=== PATIENT | female | born 2000 | race Caucasian/White ===

== ENCOUNTER 2022-08-19 16:06 | Outpatient (OUT) | payer OTHER, SELFPAY ==
[2022-08-19 17:18] LABS: HCG Quantitative <1 mIU/mL
== END 2022-08-19 16:07 | disposition home or self-care (01) ==
LOC: LAB 16:10
PROVIDERS: PCP Family Medicine; Visit Provider Obstetrics & Gynecology
DX: N92.6 Irregular menstruation, unspecified (principal)
CPT/HCPCS: 36415; 84702

== ENCOUNTER 2022-09-16 22:04 | Outpatient (REF) | payer OTHER, SELFPAY ==
[2022-09-23 11:08] LABS: Age Gdln ACOG Testing Note (.); IGP, rfx Aptima HPV ASCU Note (.)
== END 2022-09-16 22:05 | disposition home or self-care (01) ==
LOC: LAB 22:04
PROVIDERS: PCP Family Medicine; Visit Provider Physician Assistant
DX: Z01.419 Encounter for gynecological examination (general) (routine) without abnormal findings (principal)
CPT/HCPCS: G0145

== ENCOUNTER 2023-09-22 19:06 | Outpatient (REF) | payer OTHER, SELFPAY | END 2023-09-22 19:07 | disposition home or self-care (01) | LOC: LAB 19:06 | PROVIDERS: PCP Family Medicine; Visit Provider Physician Assistant | DX: Z01.419 Encounter for gynecological examination (general) (routine) without abnormal findings (principal) | CPT/HCPCS: 88175 ==

== ENCOUNTER 2024-02-02 14:02 | Outpatient (OUT) | payer OTHER, SELFPAY ==
--- NOTE | 2024-02-02 14:08 | CT_ITS ---
The [address] [address] Patient Name: GAEL JORGE MRN: [id number] date: 2000 Sex: F Assigned Patient Location: CT Current Patient Location: CT Accession/Order Number: [id number] Exam Date: 02/02/2024 14:19 Report Date: 02/02/2024 20:29 At the request of: DANIEL WITT Procedure: CT sinus wo con EXAM: CT sinus wo con HISTORY: Acute Non Recurrent Maxillary Sinusitis COMPARISON: None. TECHNIQUE: Multiple thin computed tomograms of the paranasal sinuses were obtained, with sagittal and coronal reconstructions. FINDINGS: The paranasal sinuses are well-developed and essentially clear. The ostiomeatal complex on either side is patent. The orbital rims and floors are intact. The waters of the sinuses are intact. There is deviation of the nasal septum to the right accompanied by a spur. The nasal passages are patent. The visualized middle ears are aerated. The visualized mastoid sinuses are clear although not fully included in the [id number]. There is no apparent acute skull fracture. There is mild prominence of the soft tissues in the posterior nasopharynx, presumably adenoid tissues. CT/CT sinus wo con IMPRESSION: The paranasal sinuses are well-developed and essentially clear. The ostiomeatal complex on either side is patent. The osseous structures are intact. There is deviation of the nasal septum to the right accompanied by a spur to the right, while the nasal passages remain patent. There is no evidence of a fracture. The visualized middle ears and mastoid sinuses are clear. Electronically authenticated by: MAGY AVELAR Date: 02/02/2024 20:29
== END 2024-02-02 14:03 | disposition home or self-care (01) ==
LOC: CT 14:03
PROVIDERS: PCP Family Medicine
DX: J01.00 Acute maxillary sinusitis, unspecified (principal); H69.93 Unspecified Eustachian tube disorder, bilateral; J32.0 Chronic maxillary sinusitis
CPT/HCPCS: 70486

== ENCOUNTER 2024-09-23 12:30 | Outpatient (REF) | payer OTHER, SELFPAY ==
--- OUTSIDE RECORDS SUMMARY | 2024-09-23 12:37 | XMS_ITS | CCD ---
Author Organization [facility] Care Team Providers Care Program Manager Slp Name Role Phone Esperanza Barraza Attending Kathyab Declan Harley Referring Unavail able REQUEST, NONE LISTED Admitting Unavaila ble REQUEST, NONE LISTED Attending Unavaila ble REQUEST, NONE LISTED Consulting Unavaila ble REQUEST, NONE LISTED Admitting Unavaila ble REQUEST, NONE LISTED Attending Unavaila ble REQUEST, NONE LISTED Consulting Unavaila ble CANNON, DR JACIEL Lagunas Attending Unavailable CANNON, DR JACIEL Lagunas Consulting Unavailable CANNON, DR JACIEL Lagunas Admitting Unavailable Destinee Bailey Unavailable Jaciel Cannon MD Primary Care Provider Jaciel Cannon MD Primary Care Provider [phone] Jose Valdovinos Attending Unavailable Jaciel Cannon MD Primary Care Provider [phone] ALEXIS, MARGARET Attending Unavailable ALEXIS, MARGARET Attending Unavailable ALEXIS, MARGARET Attending Unavailable ALEXIS, MARGARET Attending Unavailable ALEXIS, MARGARET Attending Unavailable ALEXIS, MARGARET Attending Unavailable DAVE CANNONIA E Referring Unavailable CANNON, JACIEL E Primary Care Unavailable ARELIS GUILLERMO Attending Unavailable CANNON JACIEL E Referring Unavailable CANNON, JACIEL E Primary Care Unavailable CANNON JACIEL E Referring Unavailable CANNON, JACIEL E Primary Care Unavailable BRENT MOORE Attending Unavailable CANNON, JACIEL E Referring Unavailable CANNON, JACIEL E Primary Care Unavailable ARELIS GUILLERMO Attending Unavailable CANNON, JACIEL E Referring Unavailable CANNON, JACIEL E Primary Care Unavailable CANNON, JACIEL E Referring Unavailable CANNON, JACIEL E Primary Care Unavailable ARELIS GUILLERMO Attending Unavailable CANNON, JACIEL E Referring Unavailable CANNON, JACIEL E Primary Care Unavailable CANNON, JACIEL E Referring Unavailable CANNON, JACIEL E Primary Care Unavailable CANNON, JACIEL E Referring Unavailable CANNON, JACIEL E Primary Care Unavailable ARELIS GUILLERMO Attending Unavailable JACIEL CANNON Referring Unavailable JACIEL CANNON Primary Care Unavailable Jaciel Cannon MD Primary Care Provider Allergies Allergy Classification Reported Allergen(s) Allergy Type Date of Onset Reaction(s) Facility (2 sources) Amoxicillin / Clavulanate; Translations: [Augmentin] Drug Allergy [facility] (16 sources) Amoxicillin Drug Allergy 3 Other [facility] (20 sources) Amoxicillin-Pot Clavulanate; Translations: [AMOXICILLIN-PO T CLAVULANATE] Drug Intolerance 2 GI intolerance, GI Disturbance [facility] Medications Current Medications Medication Drug Class(es) Dates Sig (Normalized) Sig (Original) acetaminophen 325 mg oral tablet (3 sources) Start: 02-05-2023 End: 02-15-2023 take 2 tablets by mouth every six hours as needed for pain acetaminophen (TYLENOL) 325 mg tablet Take 2 tablets (650 mg total) by mouth every 6 (six) hours as needed for pain for up to 10 days. 30 tablet 0 02/05/2023 02/15/2023 Active azelastine hydrochloride 0.137 mg/actuat metered dose nasal spray (20 sources) Histamine-1 Receptor Antagonist Start: 02-11-2023 take 1 spray(s) nasal route in the morning azelastine (ASTELIN) 137 mcg (0.1 %) nasal spray Indications: Allergic rhinitis , Dysfunction of both eustachian tubes Administer 1 spray into each nostril in the morning and 1 spray before bedtime. Use in each nostril as directed. 30 mL 12 02/11/2023 Active Start: 02-18-2022 End: 10-15-2023 take 1 spray(s) nasal route at bedtime azelastine (Astelin) 0.1 % nasal spray SPRAY 1 SPRAY INTO EACH NOSTRIL IN THE MORNING AND BEFORE BEDTIME DIRECTED 02/18/2022 10/15/2023 Discontinued (Other) Start: 02-18-2022 End: 02-10-2023 take 1 spray(s) nasal route at bedtime azelastine (ASTELIN) 137 mcg (0.1 %) nasal spray Indications: Allergic rhinitis , Dysfunction of both eustachian tubes SPRAY 1 SPRAY INTO EACH NOSTRIL IN THE MORNING AND BEFORE BEDTIME DIRECTED 30 mL 12 02/18/2022 02/10/2023 Discontinued (Reorder) cefdinir 300 mg oral capsule (1 source) Cephalosporin Antibacterial Start: 08-07-2022 clindamycin 300 mg oral capsule (2 sources) Lincosamide Antibacterial Start: 02-10-2023 End: 02-17-2023 take 1 capsule by mouth three times daily clindamycin (CLEOCIN) 300 mg capsule Indications: Otorrhea, right Take 1 capsule (300 mg total) by mouth 3 (three) times a day for 7 days. 21 capsule 0 02/10/2023 02/17/2023 Active FLUoxetine 20 mg oral capsule (15 sources) Serotonin Reuptake Inhibitor Start: 06-08-2024 take 1 capsule by mouth once daily FLUoxetine (PROzac) 20 MG capsule Indications: Mood changes TAKE 1 CAPSULE BY MOUTH EVERY DAY 90 capsule 3 06/08/2024 Active Start: 05-10-2024 End: 06-09-2024 take 2 capsules by mouth once daily FLUoxetine (PROzac) 10 MG capsule Indications: Mood changes Take 2 capsules (20 mg) by mouth Daily 60 capsule 05/10/2024 06/09/2024 Active Start: 05-03-2024 End: 01-28-2025 take 1 capsule by mouth once daily FLUoxetine (PROzac) 10 MG capsule Indications: Mood changes Take 1 capsule (10 mg) by mouth Daily 90 capsule 2 05/03/2024 05/10/2024 Discontinued (Ineffective) take 1 capsule by mo uth in the morning FLUoxetine (PROzac) 10 mg capsule Take 1 capsule (10 mg total) by mouth in the morning. Active fluticasone propionate 0.05 mg/actuat metered dose nasal spray (20 sources) Corticosteroid Start: 11-11-2017 Fluticasone Pr opionate (Flonase Allergy Relief) 50 mcg/actuation Atkinson,Suspension Active 2 SPRAY INTRANASAL Twice daily November 11, 2017 12:00am fluticasone (Thomas nase) 50 MCG/ACT nasal spray every 12 (twelve) hours. Active take 2 spray(s) nasal route once daily fluticasone (VERAMYST) 27.5 mcg/actuation nasal spray Administer 2 sprays into each nostril once daily. Active take 1 spray(s) nasa l route in the morning fluticasone propionate (FLONASE) 50 mcg/actuation nasal spray Administer 1 spray into each nostril in the morning. Active ibuprofen 600 mg oral tablet (15 sources) Nonsteroidal Anti-inflammatory Drug Start: 02-05-2023 take 1 tablet by mouth every six hours as needed for pain ibuprofen (MOTRIN) 600 mg tablet Take 1 tablet (600 mg total) by mouth every 6 (six) hours as needed for pain. 30 tablet 02/05/2023 Active ipratropium bromide 0.042 mg/actuat metered dose nasal spray (20 sources) Anticholinergic Start: 12-28-2023 take 2 spray(s) nasal route three times daily as needed ipratropium (Atrovent) 0.06 % nasal spray Administer 2 sprays into affected nostril(s) 3 (three) times a day as needed 12/28/2023 Active Start: 12-04-2023 End: 12-28-2023 take 2 spray(s) nasal route three times daily as needed for rhinitis ipratropium (ATROVENT) 42 mcg (0.06 %) nasal spray Indications: Dysfunction of both eustachian tubes , Vasomotor rhinitis ADMINISTER 2 SPRAYS INTO EACH NOSTRIL 3 (THREE) TIMES A DAY NEEDED FOR RHINITIS. 45 mL 4 12/28/2023 Active 24 hr metFORMIN hydrochloride 500 mg extended release oral tablet (20 sources) Biguanide Start: 09-30-2023 End: 10-30-2023 take 1 tablet by mouth every twenty-four hours at mealtime metFORMIN XR (Glucophage-XR) 500 MG 24 hr tablet Indications: Encounter for weight management Take 1 tablet (500 mg) by mouth in the evening. Take with meals Do not crush, chew, or split. 30 tablet 11 09/30/2023 Active take 1 tablet by malia th in the morning, then take 1 tablet by mouth at bedtime metFORMIN (GLUCOPHAGE) 500 mg tablet Gee e 1 tablet (500 mg total) by mouth in the morning and 1 tablet (500 mg total) before bedtime. Active methylPREDNISolone (15 sources) Corticosteroid Start: 12-04-2023 methylPREDNISo lone (MEDROL, SIA,) 4 mg tablet Indications: Acute non-recurrent maxillary sinusitis Take as directed 21 tablet 12/04/2023 Active Start: 02-10-2023 End: 12-04-2023 methylPREDNISolone (MEDROL, SIA,) 4 mg tablet Indications: Otorrhea, right Take as directed 21 tablet 02/10/2023 12/04/2023 Discontinued (Therapy completed) Start: 02-10-2023 methylPREDNISo lone (MEDROL, SIA,) 4 mg tablet Indications: Otorrhea, right Take as directed 21 tablet 02/10/2023 Active Start: 02-10-2023 methylPREDNISo lone (MEDROL, SIA,) 4 mg tablet Indications: Otorrhea, right Take as directed 21 tablet 0 02/10/2023 Active multivitamin with minerals ( HAIR,SKIN AND NAILS ORAL) (15 sources) multivitamin wit h minerals (HAIR,SKIN AND NAILS ORAL) Take by mouth. Active multivitamin wit h minerals (HAIR,SKIN AND NAILS ORAL) Take by mouth. 0 Active phentermine hydrochloride 37.5 mg oral tablet (20 sources) Sympathomimetic Amine Anorectic Start: 10-18-2021 End: 12-22-2024 take 1 tablet by mouth before mealtime phentermine (Adipex-P) 37.5 MG tablet Indications: Encounter for weight management Take 1 tablet (37.5 mg) by mouth in the morning. Take before meals. 90 tablet 09/23/2024 12/22/2024 Active Completed/Discontinued Medications Medication Drug Class(es) Dates Sig (Normalized) Sig (Original) ciprofloxacin 3 mg/ml ophthalmic solution (3 sources) Quinolone Antimicrobial Start: 12-18-2017 End: 12-27-2017 take 1 drop(s) into the eye(s) twice daily Ciprofloxacin Hcl Discontinued 5 DROPS OPHTHALMIC Twice daily 5 3 December 18, 2017 1:00am December 27, 2017 1:02am Ophthalmic drops for ears ciprofloxacin 3 mg/ml / dexamethasone 1 mg/ml otic suspension (11 sources) Corticosteroid, Quinolone Antimicrobial Start: 12-04-2023 End: 06-21-2024 ciprofloxacin-dexA METHasone (CiproDEX) otic suspension Administer 4 drops into each ear if needed 12/04/2023 06/21/2024 Discontinued Start: 12-04-2023 End: 12-09-2023 ciprofloxacin-dexAMETHasone (CIPRODEX) otic suspension Indications: Dysfunction of both eustachian tubes Administer 4 drops into ears in the morning and 4 drops before bedtime. Do all this for 5 days. 7.5 mL 12/04/2023 12/09/2023 Active doxycycline monohydrate 100 mg oral tablet (3 sources) Tetracycline-class Drug Start: 08-04-2024 End: 08-14-2024 take 1 tablet by mouth in the morning, then take 1 tablet by mouth at bedtime doxycycline (ADOXA) 100 MG tablet Indications: Acute otitis media, right Take 1 tablet (100 mg total) by mouth in the morning and 1 tablet (100 mg total) before bedtime. Do all this for 10 days. 20 tablet 08/04/2024 08/14/2024 Start: 12-04-2023 End: 12-14-2023 take 1 tablet by mouth in the morning, then take 1 tablet by mouth at bedtime doxycycline (ADOXA) 100 MG tablet Indications: Acute non-recurrent maxillary sinusitis Take 1 tablet (100 mg total) by mouth in the morning and 1 tablet (100 mg total) before bedtime. Do all this for 10 days. 20 tablet 12/04/2023 12/14/2023 Active famotidine 20 mg oral tablet (3 sources) Histamine-2 Receptor Antagonist End: 10-15-2023 famotidine (Pepcid) 20 MG tablet 1 (one) time each day at the same time. 10/15/2023 Discontinued (Other) Problems Active Problems Problem Classification Problem Date Documented Date Episodic/Chronic Administrative/socia l admission (10 sources) Patient encounter status; Translations: [Persons encountering health services in other specified circumstances] 01-14-2024 Episodic Disorders of teeth and jaw (2 sources) Unspecified temporomandibular joint disorder, unspecified side; Translations: [Temporomandibular joint disorder] Onset: 06-22-2024 06-22-2024 Episodic Mood disorders (2 sources) Disturbance in mood; Translations: [Emotional lability] 05-10-2024 Episodic Other ear and sense organ disorders (15 sources) Hearing loss; Translations: [Unspecified hearing loss, unspecified ear] Onset: 01-24-2023 01-24-2023 Chronic Other ear and sense organ disorders (1 source) Conductive hearing loss, bilateral; Translations: [Conductive hearing loss, bilateral] 06-29-2024 Chronic Other ear and sense organ disorders (2 sources) Ear sensations - finding; Translations: [Other specified disorders of right ear] 08-21-2023 Episodic Other ear and sense organ disorders (2 sources) Otalgia, right ear; Translations: [Otalgia, unspecified] Onset: 06-22-2024 06-22-2024 Episodic Other nutritional; endocrine; and metabolic disorders (3 sources) Severe obesity; Translations: [Morbid (severe) obesity due to excess calories] 07-10-2023 Chronic Other nutritional; endocrine; and metabolic disorders (4 sources) Morbid (severe) obesity due to excess calories; Translations: [Morbid obesity] 07-10-2023 Chronic Other nutritional; endocrine; and metabolic disorders (4 sources) Weight increased; Translations: [Abnormal weight gain] 02-16-2024 Episodic Other upper respiratory disease (2 sources) Allergic rhinitis; Translations: [Allergic rhinitis, unspecified] 02-10-2023 Chronic Other upper respiratory disease (15 sources) Seasonal allergy; Translations: [Other seasonal allergic rhinitis] Onset: 01-24-2023 01-24-2023 Chronic Other upper respiratory disease (3 sources) Vasomotor rhinitis; Translations: [Vasomotor rhinitis] 03-11-2024 Chronic Other upper respiratory disease (1 source) Vasomotor rhinitis; Translations: [Vasomotor rhinitis] Onset: 12-04-2023 Chronic Other upper respiratory disease (1 source) Deviated nasal septum; Translations: [Deviated nasal septum] Onset: 06-22-2024 Episodic Other upper respiratory disease (1 source) Deviated nasal septum; Translations: [Deviated nasal septum] 06-22-2024 Episodic Other upper respiratory infections (4 sources) Chronic bilateral maxillary sinusitis; Translations: [Chronic maxillary sinusitis] Onset: 12-04-2023 03-11-2024 Chronic Otitis media and related conditions (20 sources) Bilateral disorder of Eustachian tubes; Translations: [Other specified disorders of Eustachian tube, bilateral] Onset: 11-06-2022 03-11-2024 Episodic Unclassified (1 source) Earache Onset: 06-22-2024 Unclassified (1 source) Ear pressure Onset: 06-22-2024 Unclassified (1 source) tube check Onset: 08-21-2023 Past or Other Problems Problem Classification Problem Date Documented Da te Episodic/Chronic Immunizations and screening for infectious disease (4 sources) Encounter for screening for other viral diseases; Translations: [ENC SCREENING FOR OTH VIRAL DZ] Onset: 09-14-2019 Episodic Other circulatory disease (1 source) Other specified symptoms and signs involving the circulatory and respiratory systems; Translations: [OTH SPEC SX SIGNS INVLV CIRC RS] Onset: 09-24-2019 Episodic Other ear and sense organ disorders (15 sources) Otorrhea of bilateral ears; Translations: [Otorrhea, bilateral] Onset: 11-06-2022 11-06-2022 Episodic Other ear and sense organ disorders (1 source) Otorrhea of right ear; Translations: [Otorrhea, right ear] 02-10-2023 Episodic Other ear and sense organ disorders (2 sources) Other specified disorders of right ear; Translations: [Other specified disorders of right ear] Onset: 08-21-2023 Episodic Other nervous system disorders (16 sources) H/O: ear disorder; Translations: [Personal history of other diseases of the nervous system and sense organs] Onset: 11-06-2022 11-06-2022 Episodic Other nervous system disorders (1 source) Personal history of other diseases of the nervous system and sense organs; Translations: [Personal history of other diseases of the nervous system and sense organs] Onset: 11-06-2022 Episodic Other upper respiratory disease (1 source) Nasal congestion; Translations: [Nasal congestion] 08-21-2023 Episodic Other upper respiratory disease (1 source) Nasal congestion; Translations: [Nasal congestion] Onset: 08-21-2023 Episodic Other upper respiratory infections (4 sources) Acute maxillary sinusitis, unspecified; Translations: [Acute maxillary sinusitis] Onset: 12-04-2023 Episodic Residual codes; unclassified (1 source) Pain, unspecified; Translations: [Pain, unspecified] Onset: 03-13-2024 Episodic Unclassified (3 sources) Patient encounter status 06-21-2024 Results Test Name Value Interpretation Reference Range Facility HCG ( test) Ql (U)o n 06-21-2024 Interpretation and review of laboratory results Normal [facility] Preg Test, Ur Negative Negative [facility] Urinal[facility] macro (dipstick) panel (U)on 06-21-2024 Bilirubin, UA Negative Negative - 4(70) +++ mg/dL [facility] Blood, UA Positive Negative - 50 Bg/mcL [facility] Comment on above: trace-intact Clarity, UA Clear [facility] Color, UA Yellow [facility] Glucose, UA Negative Negative - 1999(110) ++++ mg/dL [facility] Interpretation and review of laboratory results Abnormal [facility] Ketones, UA Negative Negative - 160(16) ++++ mg/dL [facility] Leukocytes, UA Negative Negative - 500+++ Lorenza/mcL [facility] Nitrite, UA Negative Negative - Positive [facility] pH, UA 5.5 5 - 9 [facility] e Protein, UA Negative Negative - 1999(20) ++++ mg/dL [facility] Spec Grav, UA 1.03 1 - 1.03 [facility] Urobilinogen, UA 0.2 0.2 - 12 mg/dL [facility] Ambulatory Visit Summaryon 0 06-13-2024 Ambulatory Visit Summary Ambulatory Visit Summary JAMES BUSTOS :2000 Visit Date:06/13/2024 Ambulatory Visit Instructions Your Diagnosis Right otitis media with spontaneous rupture of eardrum Your Care Team Attending Physician - Bonifacio CRUM, Jose Ramesh Primary Care Physician - JACIEL CIFUENTES MD This Is Your Medications List amoxicillin (amoxicillin 500 mg Cap) ciprofloxacin-dexamet hasone otic (Ciprodex 0.3%-0.1% Susp-Otic) Contact prescribing physician if questions or concerns fluoxetine (FLUoxetine 20 mg Cap) metformin (MetFORMIN (Eqv-Glucophage XR) 500 mg oral tablet, extended release) phentermine (phentermine 37.5 mg Tab) Discharge Vitals Temperature (Oral) 36.4 ???C Heart Rate (Peripheral) 111 Blood Pressure 126/84 Height 170 cm Height 67 in Weight 134 kg Weight 295.419 lb BMI 46.37 What to do next You Need to Schedule the Following Appointments Follow Up with JACIEL CIFUENTES MD When: Where: [address] [place] [id number] Medications What How Much When Why Instructions New amoxicillin (amoxicillin 500 mg Cap) 2 Capsules By Mouth 2 times a day Right otitis media with spontaneous rupture of eardrum Duration: 7 Days Pickup at [facility]/pharmacy #[id number] New ciprofloxacin-dexamet hasone otic (Ciprodex 0.3%-0.1% Susp-Otic) 4 Drops Otic 2 times a day Right otitis media with spontaneous rupture of eardrum Duration: 7 Days Pickup at [facility]/pharmacy #[id number] Unchanged fluoxetine (FLUoxetine 20 mg Cap) Contact prescribing physician if questions or concerns Unchanged metformin (MetFORMIN (Eqv-Glucophage XR) 500 mg oral tablet, extended release) Contact prescribing physician if questions or concerns Unchanged phentermine (phentermine 37.5 mg Tab) Contact prescribing physician if questions or concerns Pharmacy Information [facility]/pharmacy #[id number]: [address] [place], [place] [id number] [phone] Allergies Augmentin (Vomiting) Problems Ongoing - Any problem that you are currently receiving treatment for. Morbid obesity with BMI of 45.0-49.9, adult Patient Survey You may receive a survey via text or e-mail asking about your office visit. Please share your experience with us by completing your survey. We appreciate your feedback and thank you for choosing us for your care. Adal Gu [facility] Family Medicine Office/Clini c Noteon 06-13-2024 Family Medicine Office/Clinic Note Family Medicine Office/Clinic Note Chief Complaint right ear pain HPI Staff 24 year old female complaints of right ear pain that woke her up in the middle of the night, blood coming from right ear the tube in her right ear dislodged about a month ago and saw ENT who took it out. currently has tubes in left ear OTC tried: ciproflaxin ear drops, ibuprofen History of Present Illness I have reviewed and verified the staff HPI to be accurate for this encounter. Portions of this record have been created with voice recognition software. Occasional wrong-word or ???[id number]??? substitutions may have occurred due to the inherent limitations of voice recognition software. 24 yo female presents today with cc of right ear pain. States she woke up in the middle of the night and had blood coming from the right ear. States that the tube in her right ear dislodged about a month ago and she saw ENT who took it out. States she currently has a tube in the left ear. Patient states that for the past 1 week she has developed cough. 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 Denies really any stuffy nose but states postnasal drip. She denies any fever chills or weakness. She states that yesterday she noticed the right sided ear pain when she swallowed but states it kind of came and went so she did not think much of it. States she woke around 2:30 AM this morning with significant right-sided ear pain states that she got up she took some ibuprofen and she found her Ciprodex eardrops that she was told to keep on hand by ENT and put some drops in. States that she laid back down when she woke up this morning and stood up she noticed drainage that she could feel running down the side of her cheek which she states was blood-tinged. She states it is continued to drain as she has been putting a tonsil on that right ear states still some blood-tinged drainage. She states that the ear pain has improved. She denies any fever or chills. She has no other concerns at this time. Plans to contact ENT tomorrow morning but did not want to wait. States allergy to Augmentin due to nausea and vomiting. Review of Systems PHQ Score Initial Depression Screen Score: 0 SCORE ROS negative unless otherwise stated in HPI. Physical Exam Vitals & Measurements T: 36.4 ???C(Oral) HR: 111(Peripheral) BP: 126/84 SpO2: 98% HT: 170 cm HT: 67 in WT: 134 kg WT: 295.419 lb BMI: 46.37 General: Very pleasant morbidly obese young female, no acute distress sitting upright in the exam chair Eyes:Bilateral conjunctiva wnl, no injection Ears: The right TM is very erythematous with air-fluid levels and bubbles concerning for a right otitis media with spontaneous TM rupture. There is serosanguineous fluid within that right ear canal that is draining. The left TM is within normal limits tympanostomy tube is noted in the left ear. No redness or concern for infection. External auditory canals are within normal limits no erythema or edema. Nose:No deformity, discharge, inflammation, or lesions Mouth:Moist mucous membranes. Uvula is midline. No acute tonsillar erythema, edema, or exudate. No signs of peritonsillar abscess. No trismus or drooling. Neck:no adenopathy Lungs:Lung sounds are clear bilaterally. No wheezing, rhonchi, or crackles on exam. Cardio:S1, S2, regular rhythm. No murmurs, gallops, or rubs. Abdomen:not assessed Musculoskeletal:not assessed Extremity:not assessed Neurologic:not assessed Skin:not assessed Mental Status:Alert and oriented x3. Normal mood and affect Assessment/Plan I spoke with patient regards to treatment of right acute otitis media with spontaneous rupture of eardrum. Discussed we will treat with amoxicillin 500 mg 2 caps twice daily x 7 days duration in addition to refill of her Ciprodex otic drops. This will be 4 drops twice daily x 7 days. Patient will contact her ENT for [facility] tomorrow morning to schedule follow-up appointment which she agrees understands plan. Otherwise will follow closely with PCP or return if needed. Will continue Tyle ibuprofen as needed for pain. 1. Right otitis media with spontaneous rupture of eardrum (H66.91: Otitis media, unspecified, right ear) Will treat with amoxicillin bid x 7 days, in addition to ciprodex drops: 4 drops bid x 7 days. Finish course. Fluids/rest, PRN tylenol/ibuprofen for pain and/or fever encouraged. Discussed other cold symptoms remain viral in nature- typical duration 7-14 days. Encouraged to follow up with PCP for recheck in about 5 days to ensure infection resolving, especially if symptoms worsening or fevers. Patient verbalized understanding of treatment plan. Ordered: amoxicillin, 1,000 mg = 2 cap(s), Oral, BID, X 7 day(s), # 28 cap(s), Refills(s) 0, Pharmacy: [id number], 170, cm, 06/13/24 10:19:00 EDT, Height/Length Dosing, 134, kg, 06/13/24 10:19:00 EDT, Weight Dosing ciprofloxacin-dexamet hasone otic, 4 drop(s), Otic, BID for 7 day(s), 7.5 mL, Refill(s) 0, [id number], 170, cm, 06/13/24 10:19:00 EDT, Hei (more content not included)... Normal [facility] Comment on above: Result Comment: Elec tronically Signed By: Bonifacio CRUM, Jose Ramesh\.br\Date and Time Signed: 06/13/24 10:50 EDT COVID-19 PCRon 09-16-2019 SARS-CoV-2 (COVID-19) RNA LAKESHA+probe Ql (Unsp spec) Not detected Normal Not Detected [facility] Comment on above: Result Comment: This test was developed and its performance characteristics determined by [employer]. This test has not been FDA cleared or approved. This test has been authorized by FDA under an Emergency Use Authorization (EUA). This test is only authorized for the duration of time the declaration that circumstances exist justifying the authorization of the emergency use of in vitro diagnostic tests for detection of SARS-CoV-2 virus and/or diagnosis of COVID-19 infection under section 564(b)(1) of the Act, 21 U.S.C. 360bbb-3(b)(1), unless the authorization is terminated or revoked sooner. When diagnostic testing is negative, the possibility of a false negative result should be considered in the context of a patient's recent exposures and the presence of clinical signs and symptoms consistent with COVID-19. An individual without symptoms of COVID-19 and who is not shedding SARS-CoV-2 virus would expect to have a negative (not detected) result in this assay. 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 - On PE there was reproducible neck and otologic pain with palpation of bl carotids, likely related to carotidynia. - Will start ibuprofen 800mg TID for 2 weeks, Pepcid. - Will consider imaging if there is no improvement of her pain Chief Complaint bl otalgia History of Present Illness 18 yo female referred by Dr. Declan Patel presenting for initial evaluation of recurrent ear infections and ear pain. The patient states her had ear infections as a child requiring PE tubes in 2006 and later in 12/2017 (T tubes), prior to her second set of ear tubes she was having 10 episodes of otitis media a year, this has now significantly improved, did endorse 1 episode of otitis since her T tubes were placed. In addition she reports occasional bl aural fluens and intermittent bilateral otalgia, no known triggers, pain last several minutes and resolved. Denies vertigo, headaches, pain with chewing, vision changes, neck pain, lumps/ bumps, weight loss, nasal obstruction/ congestion, epistaxis. Of note she also underwent TANDA in 2008. 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 Ability to communicate: Normal communication without aids, normal voice quality. Head and face: Atraumatic with no masses, lesions, or scarring. Facial strength: Normal strength and symmetry, no synkinesis or facial tic. No pain noted with palpation of TMJ/ pterygoids Eyes Pupils and irises: EOM intact, PERRLA, conjunctiva non-injected. Ears Otoscopic examination: Right EAC patent, TM with mild posterior tympanosclerosis, T tube in place and patent Left EAC patent, TM clear, T tube in place and patent No drainage or signs of infection External inspection of ears: Ears normally formed and free of lesions. Nose: Dorsum symmetric with no visible or palpable deformities. External inspection of nose: No nasal lesions, lacerations, or scars. Nasal tip symmetrical with normal nasal valves. Oral Cavity/Mouth Lips, teeth, and gums: Normal lips, gums, and dentition. Oropharynx: Mucosa moist, no lesions. Hard and soft palate normal. Tongue normal, no lesions or edema. Clear OP. Neck: Symmetrical, trachea midline. No masses visible. Palpation of carotids revealed reproducible neck and otologic pain bilaterally Palpation of cervical lymph nodes: No palpable lymph node enlargement, no submandibular adenopathy, no anterior cervical adenopathy, no supraclavicular adenopathy. Neurological/Psychiat popeye Cranial Nerve Examination: II - XII grossly intact. Orientation to person, place, and time: Normal. Mood and affect: Normal. Skin: Normal without rashes or lesions. Pulmonary Respiratory effort: Chest expands symmetrically. Cardiovascular: Good peripheral pulses Peripheral vascular system: No varicosities, carotid pulse normal, no edema. No jugular venous distension. Extremities Appearance of extremities: Normal. Gait normal. Attending Note Attestation: I saw and evaluated the patient. I personally obtained the dia and critical portions of the history and physical exam or was physically present for dia and critical portions performed by the attendee. I reviewed the attendee's documentation and discussed the patient with the attendee. I agree with the attendee's medical decision making as documented on the attendee's note. Signatures Electronically signed by : Esperanza Barraza MD; Jul 21 2018 1:50PM EST (Author) Normal [facility] Vital Signs Date Time Vital Sign Value Performing Clinician Facility 09-23-2024 10:15-0400 Body height 170.2 cm Maame Dickson NP Work Phone: [facility] 09-23-2024 10:15-0400 Body mass index (BMI) [Ratio] 47.95 kg/m2 Maame Dickson FLIGHT ATTENDANT/INFLIGHT MANAGER Work Phone: [facility] 09-23-2024 10:15-0400 Body weight 138.86 kg Maame Dickson NP Work Phone: [facility] 09-23-2024 10:15-0400 Diastolic blood pressure 72 mm[Hg] Maame Dickson FLIGHT ATTENDANT/INFLIGHT MANAGER Work Phone: [facility] 09-23-2024 10:15-0400 Systolic blood pressure 130 mm[Hg] Maame Dickson FLIGHT ATTENDANT/INFLIGHT MANAGER Work Phone: [facility] 08-12-2024 11:25-0400 Body height 170.2 cm Arelis Guillermo MD Work Phone: [facility] 08-12-2024 11:25-0400 Body mass index (BMI) [Ratio] 48.35 kg/m2 Arelis Guillermo MD Work Phone: [facility] 08-12-2024 11:25-0400 Body temperature 98.8 [degF] Arelis Guillermo MD Work Phone: [facility] 08-12-2024 11:25-0400 Body weight 140.07 kg Arelis Guillermo MD Work Phone: [facility] 06-22-2024 10:16-0400 Body height 170.2 cm Arelis Guillermo MD Work Phone: [facility] 06-22-2024 10:16-0400 Body mass index (BMI) [Ratio] 47.11 kg/m2 Arelis Guillermo MD Work Phone: [facility] 06-22-2024 10:16-0400 Body temperature 97.9 [degF] Arelis Guillermo MD Work Phone: [facility] 06-22-2024 10:16-0400 Body weight 136.44 kg Arelis Guillermo MD Work Phone: [facility] 06-21-2024 15:56-0400 Body mass index (BMI) [Ratio] 47.27 kg/m2 Margaret Avery PA Work Phone: [facility] 06-21-2024 15:56-0400 Body weight 136.9 kg Margaret Avery PA Work Phone: [facility] 06-21-2024 15:56-0400 Diastolic blood pressure 78 mm[Hg] Margaret Avery PA Work Phone: [facility] 06-21-2024 15:56-0400 Systolic blood pressure 128 mm[Hg] Margaret Avery PA Work Phone: [facility] 05-10-2024 16:30-0400 Body height 170.2 cm Margaret Avery PA Work Phone: [facility] 05-10-2024 16:30-0400 Body mass index (BMI) [Ratio] 47.46 kg/m2 Margaret Avery PA Work Phone: [facility] 05-10-2024 16:30-0400 Body weight 137.44 kg Margaret Dunkirk PA Work Phone: [facility] 05-10-2024 16:30-0400 Diastolic blood pressure 72 mm[Hg] Margaret Alexis PA Work Phone: [facility] 05-10-2024 16:30-0400 Systolic blood pressure 120 mm[Hg] Margaret Dunkirk PA Work Phone: [facility] 03-11-2024 14:09-0500 Body height 170.2 cm Arelis Guillermo MD Work Phone: [facility] 03-11-2024 14:09-0500 Body mass index (BMI) [Ratio] 49.23 kg/m2 Arelis Guillermo MD Work Phone: [facility] 03-11-2024 14:09-0500 Body temperature 98.4 [degF] Arelis Guillermo MD Work Phone: [facility] 03-11-2024 14:09-0500 Body weight 142.61 kg Arelis Guillermo MD Work Phone: [facility] 02-16-2024 16:32-0500 Body mass index (BMI) [Ratio] 49.96 kg/m2 Margaret Dunkirk PA Work Phone: [facility] 02-16-2024 16:32-0500 Body weight 144.7 kg Margaret Dunkirk PA Work Phone: [facility] 02-16-2024 16:32-0500 Diastolic blood pressure 72 mm[Hg] Margaret Dunkirk PA Work Phone: [facility] 02-16-2024 16:32-0500 Systolic blood pressure 118 mm[Hg] Margaret Alexis PA Work Phone: [facility] 01-14-2024 16:38-0500 Body mass index (BMI) [Ratio] 50.4 kg/m2 Margaret Alexis PA Work Phone: [facility] 01-14-2024 16:38-0500 Body weight 145.97 kg Margaret Avery PA Work Phone: [facility] 01-14-2024 16:38-0500 Diastolic blood pressure 78 mm[Hg] Margaret Dunkirk PA Work Phone: [facility] 01-14-2024 16:38-0500 Systolic blood pressure 118 mm[Hg] Margaret Avery PA Work Phone: [facility] 12-04-2023 12:23-0400 Body height 170.2 cm Arelis Guillermo MD Work Phone: [facility] 12-04-2023 12:23-0400 Body mass index (BMI) [Ratio] 51.18 kg/m2 Arelis Guillermo MD Work Phone: [facility] 12-04-2023 12:23-0400 Body temperature 98.2 [degF] Arelis Guillermo MD Work Phone: [facility] 12-04-2023 12:23-0400 Body weight 148.24 kg Arelis Guillermo MD Work Phone: [facility] 12-04-2023 12:23-0400 Respiratory rate 18 /min Arelis Guillermo MD Work Phone: [facility] 10-15-2023 16:32-0400 Body mass index (BMI) [Ratio] 51.34 kg/m2 Margaret Avery PA Work Phone: [facility] 10-15-2023 16:32-0400 Body weight 148.69 kg Margaret Avery PA Work Phone: [facility] 10-15-2023 16:32-0400 Diastolic blood pressure 72 mm[Hg] Margaret Avery PA Work Phone: [facility] 10-15-2023 16:32-0400 Systolic blood pressure 112 mm[Hg] Margaret Avery PA Work Phone: [facility] 09-11-2023 15:00-0400 Body height 170.18 cm [facility] 09-11-2023 15:00-0400 Body mass index (BMI) [Ratio] 53.1 kg/m2 [facility] 09-11-2023 15:00-0400 Body weight 153.82 kg [facility] 09-11-2023 15:00-0400 Diastolic blood pressure 80 mm[Hg] [facility] 09-11-2023 15:00-0400 Heart rate 80 /min [facility] 09-11-2023 15:00-0400 Systolic blood pressure 124 mm[Hg] [facility] 08-21-2023 15:30-0400 Body height 170.2 cm Brent Prong AGRICULTURAL ECONOMIST-CRYSTAL LAPPER Work Phone: [facility] 08-21-2023 15:30-0400 Body mass index (BMI) [Ratio] 53.56 kg/m2 Brent Liebich AGRICULTURAL ECONOMIST-CRYSTAL LAPPER Work Phone: [facility] 08-21-2023 15:30-0400 Body temperature 98.2 [degF] BrentItrybeforeIbuybich AGRICULTURAL ECONOMIST-CRYSTAL LAPPER Work Phone: [facility] 08-21-2023 15:30-0400 Body weight 155.13 kg Brent BTC Chinabich AGRICULTURAL ECONOMIST-CRYSTAL LAPPER Work Phone: [facility] 08-11-2023 14:58-0400 Body height 170.18 cm [facility] 08-11-2023 14:58-0400 Body mass index (BMI) [Ratio] 53.4 kg/m2 [facility] 08-11-2023 14:58-0400 Body weight 154.67 kg [facility] 08-11-2023 14:58-0400 Diastolic blood pressure 82 mm[Hg] [facility] 08-11-2023 14:58-0400 Heart rate 109 /min [facility] 08-11-2023 14:58-0400 Systolic blood pressure 114 mm[Hg] [facility] 07-10-2023 11:11-0400 Body height 170.18 cm [facility] 07-10-2023 11:11-0400 Body mass index (BMI) [Ratio] 54.1 kg/m2 [facility] 07-10-2023 11:11-0400 Body weight 156.94 kg [facility] 07-10-2023 11:11-0400 Diastolic blood pressure 55 mm[Hg] [facility] 07-10-2023 11:11-0400 Heart rate 76 /min [facility] 07-10-2023 11:11-0400 Systolic blood pressure 97 mm[Hg] [facility] 03-04-2023 15:41-0500 Body height 170.2 cm Silverio InvisibleCRM PA-C Work Phone: [employer] 03-04-2023 15:41-0500 Body mass index (BMI) [Ratio] 46.36 kg/m2 Silverio InvisibleCRM PA-C Work Phone: [employer] 03-04-2023 15:41-0500 Body temperature 97.9 [degF] Silverio InvisibleCR[employer] PA-C Work Phone: [employer] 03-04-2023 15:41-0500 Body weight 134.26 kg Silverio InvisibleCR[employer] PA-C Work Phone: [employer] 08-07-2022 16:00-0400 Body height 170.18 cm Destinee Bailey Other [facility] Other 08-07-2022 16:00-0400 Body mass index (BMI) [Ratio] 51.99 kg/m2 Destinee Bailey Other [facility] Other 08-07-2022 16:00-0400 Body weight 150.6 kg Destinee Bailey Other [facility] Other 08-07-2022 16:00-0400 Diastolic blood pressure 78 mm[Hg] Destinee Bailey Other [facility] Other 08-07-2022 16:00-0400 Systolic blood pressure 120 mm[Hg] Destinee Bailey Other [employer] Other Encounters Encounter Date Encounter Type Care Provider Facility Start: 09-23-2024 End: 09-23-2024 Bamboo flowsheet Maame Dickson FLIGHT ATTENDANT/INFLIGHT MANAGER Work Phone: [facility] Start: 09-23-2024 End: 09-23-2024 Bamboo flowsheet Maame Dickson FLIGHT ATTENDANT/INFLIGHT MANAGER Work Phone: [facility] Start: 09-23-2024 End: 09-23-2024 Patient encounter procedure Maame Dickson FLIGHT ATTENDANT/INFLIGHT MANAGER Work Phone: [facility] Start: 09-23-2024 End: 09-23-2024 Periodic preventive med est patient 18-39 yrs Maame Dickson FLIGHT ATTENDANT/INFLIGHT MANAGER Work Phone: [facility] Comment on above: Well woman exam with routine gynecological exam; Encounter for weight management Start: 08-12-2024 End: 08-12-2024 Office outpatient visit 15 minutes Arleis Guillermo MD Work Phone: [facility] Comment on above: ETD (Eustachian tube dysfunction), bilateral (Primary Dx); Tympanosclerosis of both ears Start: 08-12-2024 End: 08-12-2024 Clinical Support [facility] 1 [facility] Comment on above: Other specified diso rders of eustachian tube, bilateral (Primary Dx) Start: 06-22-2024 End: 06-22-2024 Office outpatient visit 15 minutes Arelis Guillermo MD Work Phone: [facility] Comment on above: ETD (Eustachian tube dysfunction), bilateral (Primary Dx); TMJ (temporomandibular joint disorder); Otalgia, right; Ear fullness, right; DNS (deviated nasal septum); Tympanosclerosis of right ear; History of recurrent ear infection Start: 06-22-2024 End: 06-22-2024 ambulatory ARELIS GUILLERMO [facility] Comment on above: Other specified diso rders of eustachian tube, bilateral (Primary Dx); Conductive hearing loss, bilateral Start: 06-21-2024 End: 06-21-2024 ambulatory MARGARET AVERY Not Available Start: 06-21-2024 End: 06-21-2024 Office outpatient visit 15 minutes Margaret MONTESINOS Work Phone: [facility] Comment on above: Encounter for weight management Start: 06-21-2024 End: 06-21-2024 Bamboo flowsheet Margaret MONTESINOS Work Phone: [facility] Start: 06-21-2024 End: 06-21-2024 Bamboo flowsheet Margaret MONTESINOS Work Phone: [facility] Start: 06-13-2024 End: 06-13-2024 ambulatory Jose Valdovinos Facility:[facility] Start: 05-10-2024 End: 05-10-2024 ambulatory MARGARET AVERY Not Available Start: 05-10-2024 End: 05-10-2024 Office outpatient visit 15 minutes Margaret MONTESINOS Work Phone: [facility] Comment on above: Weight gain; Encounter for weight management; Mood changes Start: 05-10-2024 End: 05-10-2024 Bamboo flowsheet Margaret MONTESINOS Work Phone: [facility] Start: 05-10-2024 End: 05-10-2024 Bamboo flowsheet Margaret Avery PA Work Phone: [facility] Start: 03-13-2024 ambulatory JACIEL CANNON [facility] Start: 03-11-2024 End: 03-11-2024 Office outpatient visit 15 minutes Arelis Guillermo MD Work Phone: [facility] Comment on above: Dysfunction of both eustachian tubes (Primary Dx); Vasomotor rhinitis; Chronic sinusitis of both maxillary sinuses; Tympanosclerosis of right ear Start: 03-11-2024 End: 03-11-2024 Clinical Support [facility] Comment on above: Other specified diso rders of eustachian tube, bilateral (Primary Dx) Start: 02-16-2024 End: 02-16-2024 ambulatory MARGARET AVERY Not Available Start: 02-16-2024 End: 02-16-2024 Office outpatient visit 15 minutes Margaret Avery PA Work Phone: [facility] Comment on above: Weight gain; Encounter for weight management Start: 02-16-2024 End: 02-16-2024 Bamboo flowsheet Margaret Avery PA Work Phone: [facility] Start: 02-16-2024 End: 02-16-2024 Bamboo flowsheet Margaret Avery PA Work Phone: [facility] Start: 01-14-2024 End: 01-14-2024 ambulatory MARGARET AVERY Not Available Start: 01-14-2024 End: 01-14-2024 Office outpatient visit 5 minutes Margaret Avery PA Work Phone: [facility] Comment on above: Encounter for weight management Start: 01-14-2024 End: 01-14-2024 Bamboo flowsheet Margaret Avery PA Work Phone: [facility] Start: 01-14-2024 End: 01-14-2024 Bamboo flowsheet Margaret Avery PA Work Phone: [facility] Start: 12-26-2023 End: 12-28-2023 Refill Arelis Guillermo MD Work Phone: [facility] Comment on above: Dysfunction of both eustachian tubes; Vasomotor rhinitis Start: 12-04-2023 End: 12-04-2023 Office outpatient visit 25 minutes Arelis Guillermo MD Work Phone: [facility] Comment on above: Acute non-recurrent maxillary sinusitis (Primary Dx); Dysfunction of both eustachian tubes; Vasomotor rhinitis; Chronic sinusitis of both maxillary sinuses Start: 12-04-2023 End: 12-04-2023 ambulatory ARELIS M EDUAR [facility] Start: 10-15-2023 End: 10-15-2023 Office outpatient visit 15 minutes Margaret MONTESINOS Work Phone: [facility] Comment on above: Encounter for weight management Start: 10-15-2023 End: 10-15-2023 ambulatory MARGARET AVERY Not Available Start: 10-15-2023 End: 10-15-2023 Bamboo flowsheet Margaret MONTESINOS Work Phone: [facility] Start: 10-15-2023 End: 10-15-2023 Bamboo flowsheet Margaret MONTESINOS Work Phone: [facility] Start: 09-22-2023 End: 09-22-2023 ambulatory MARGARET AVERY Not Available Start: 09-11-2023 End: 09-11-2023 ambulatory [facility] Work Phone: Start: 09-11-2023 End: 09-11-2023 Patient encounter procedure [facility] Work Phone: Start: 08-21-2023 End: 08-21-2023 Patient encounter procedure Brent Lieac AGRICULTURAL ECONOMIST-CRYSTAL LAPPER Work Phone: [facility] Comment on above: Dysfunction of both eustachian tubes (Primary Dx); Nasal congestion Start: 08-21-2023 End: 08-21-2023 Clinical Support [facility] Ent Audio 1 [facility] Comment on above: Other specified diso rders of eustachian tube, bilateral (Primary Dx); Ear fullness, right Start: 08-11-2023 End: 08-11-2023 [facility] Work Phone: Start: 08-11-2023 End: 08-11-2023 Patient encounter procedure [facility] Work Phone: Start: 07-10-2023 End: 07-10-2023 ambulatory [facility] Work Phone: Start: 07-10-2023 End: 07-10-2023 Patient encounter procedure [facility] Work Phone: Start: 03-04-2023 End: 03-04-2023 Patient encounter procedure Silverio Patiño PA-C Work Phone: [facility] Comment on above: Dysfunction of both eustachian tubes (Primary Dx) Start: 03-04-2023 End: 03-04-2023 Clinical Support Simona VASQUEZ Work Phone: [facility] Comment on above: Other specified diso rders of eustachian tube, bilateral (Primary Dx) Start: 02-10-2023 Documentation procedure Rosa Gonzalez Work Phone: [facility] Comment on above: Allergic rhinitis; Dysfunction of both eustachian tubes Start: 02-05-2023 Telephone encounter Arelis Guillermo MD Work Phone: [facility] Start: 08-07-2022 End: 08-07-2022 ambulatory Destinee Bailey Other [facility] Other Start: 08-07-2022 Office outpatient vi sit 15 minutes Destinee Bailey [facility] Start: 06-01-2020 End: 06-02-2020 ambulatory NONE LISTED REQUEST Facility:[facility] Start: 05-12-2020 End: 05-13-2020 ambulatory NONE LISTED REQUEST Facility:[facility] Start: 09-14-2019 End: 09-15-[address] JACIEL CANNON Facility:[facility] Start: 06-02-2018 Patient encounter procedure Esperanzagisela [facility] Facility:[id number] Procedures Date Procedure Procedure Detail Performing Clinician Start: 06-22-2024 COMPREHENSIVE HEARING TEST Arelis Guillermo MD Work Phone: Start: 06-21-2024 Urnls dip stick/tablet rgnt non-auto w/o micrscp Margaret MONTESINOS Work Phone: Start: 09-22-2023 Microscopic observation [Identifier] in Cervix by Cyto stain Arelis Guillermo MD Work Phone: Start: 08-21-2023 Follow-up visit Follow-up JACIEL CANNON Start: 11-06-2022 H/O: surgery History of tympanostomy tube placement Arelis Guillermo MD Work Phone: Plan of Treatment Date Care Activity Detail Author Start: 09-21-2026 Screening for malignant neoplasm of cervix Pap Smear [facility] Start: 09-28-2025 End: 09-28-2025 Patient encounter procedure 09/28/2025 9:00 AM EDT Procedure Visit JEFERSON WILSON [address] [place] [id number] Margaret Avery PA [address] [place] [address] JEFERSON Henson OBDANIELA Start: 08-12-2025 Adult BMI Screening Adult BMI Screen ing [facility] Start: 08-12-2025 Tobacco Screening Tobacco Screening [facility] Start: 06-29-2025 Tobacco Screening Tobacco Screening [facility] Start: 06-22-2025 Adult BMI Screening Adult BMI Screen ing [facility] Start: 06-22-2025 Tobacco Screening Tobacco Screening [facility] Start: 03-11-2025 Adult BMI Screening Adult BMI Screen ing [facility] Start: 12-16-2024 End: 12-16-2024 Patient encounter procedure 12/16/2024 3:30 PM EST Office Visit JEFERSON WILSON [address] [place] [id number] Margaret Avery PA [address] [place] [address] JEFERSON Henson OBDANIELA Start: 12-16-2024 End: 12-16-2024 Patient encounter procedure 12/16/2024 1:45 PM EST Office Visit [facility] [address] [place] [phone] Arelis Guillermo MD [address] [place] [id number] [facility] Start: 12-03-2024 Adult BMI Screening Adult BMI Screen ing [facility] Start: 12-03-2024 Tobacco Screening Tobacco Screening [facility] Start: 10-11-2024 Influenza vaccination [facility] Start: 09-23-2024 End: 09-23-2024 Patient encounter procedure 09/23/2024 10:00 AM EDT Office Visit [facility] [address] [place] [phone] Margaret Avery PA [address] [place] [address] [facility] Start: 09-09-2024 End: 09-09-2024 Patient encounter procedure 09/09/2024 10:15 AM EDT Office Visit [facility] [address] [place] [facility] [place] [id number] Arelis Guillermo MD [address] [place] [id number] [facility] Start: 08-20-2024 Adult BMI Screening Adult BMI Screen ing [facility] Start: 08-20-2024 Tobacco Screening Tobacco Screening [facility] Start: 08-12-2024 End: 08-12-2024 Clinical Support [facility] Start: 06-07-2024 End: 06-07-2024 Patient encounter procedure 06/07/2024 4:00 PM EDT Office Visit [facility] [address] [facility] [place] [phone] Margaret Avery PA [address] [place] [address] [facility] Start: 03-11-2024 End: 03-11-2024 Clinical Support [facility] Start: 03-04-2024 Adult BMI Screening Adult BMI Screen ing [facility] Start: 03-04-2024 Tobacco Screening Tobacco Screening [facility] Start: 02-06-2024 Adult BMI Screening Adult BMI Screen ing [facility] Start: 02-06-2024 Tobacco Screening Tobacco Screening [facility] Start: 01-07-2024 End: 01-07-2024 Patient encounter procedure 01/07/2024 3:50 PM EST Office [facility] [address] [phone] Margaret Avery PA [address] [place] [address] [facility] Start: 12-04-2023 End: 12-03-2024 CT Sinuses WO contrast CT sinuses without contrast Imaging Routine Acute non-recurrent maxillary sinusitis Dysfunction of both eustachian tubes Chronic sinusitis of both maxillary sinuses Expected: 12/04/2023, Expires: 12/03/2024 [facility] Work Phone: Comment on above: Expected: 12/04/2023 , Expires: 12/03/2024 Start: 12-04-2023 End: 12-04-2023 Patient encounter procedure 12/04/2023 1:45 PM EDT Office Visit [facility] [place] [address] Arelis Guillermo MD [address] [address] [facility] Start: 10-15-2023 End: 10-15-2023 Patient encounter procedure 10/15/2023 3:50 PM EDT Office Visit [facility] [address] [place] [phone] Margaret Avery PA [address] [place] [address] Arrived [facility] Comment on above: Arrived Start: 10-12-2023 COVID-19 Vaccine () COVID-19 Vaccine () [facility] Start: 10-12-2023 COVID-19 Vaccine () COVID-19 Vaccine () [facility] Start: 10-12-2023 Influenza vaccination [facility] Start: 09-02-2023 End: 09-02-2023 Patient encounter procedure 09/02/2023 3:15 PM EDT Office Visit [facility] [address] [place] [phone] Silverio Patiño, PA-C [address] [facility] [place] [address] [facility] Start: 03-04-2023 End: 03-04-2023 Clinical Support [facility] Start: 10-11-2022 COVID-19 Vaccine () COVID-19 Vaccine () [facility] Start: 10-11-2022 Influenza vaccination Influenza Vacc ine [facility] Start: 09-15-2022 DTaP,Tdap and Td Vaccines (7 - Td or Tdap) DTaP,Tdap and Td Vaccines (7 - Td or Tdap) [facility] Start: 2021 Screening for malignant neoplasm of cervix Pap Smear [facility] Start: 2018 Adult BMI Follow Up Plan Adult BMI Follow Up Plan [facility] Start: 2012 Depression Screening Depression Scre ening [facility] Start: 2000 Screening for Chlamydia trachomatis Chlamydia Screening [facility] Cytology Cervical or vaginal smear or scraping study Pap Smear Pathology and Cytology Routine Well woman exam with routine gynecological exam Ordered: 09/23/2024 [facility] Work Phone: Comment on above: Ordered: 09/23/2024 Payers Date Payer Category Payer Private Health Insurance [employer] [id number] 2014 Commercial Managed are - O [employer] [id number] 2014 Unknown [id number]. [id number] 2000 Unknown [id number] 2.16.840.1.984986.3.579.2. 727 2000 Unknown [id number] 2.16.840.1.274604.3.579.2. 1259 2000 Unknown [id number] 2.16.840.1.973229.3.579.2. 1258 2000 Unknown [id number] 2.16.840.1.215961.3.579.2. 1258 2000 Unknown [id number] 2.16.840.1.949642.3.579.2. 1258 2000 Unknown [id number] 2.16.840.1.517247.3.579.2. 1258 2000 Unknown [id number] 2.16840.1.117301.3.579.2. 1258 2000 Unknown [id number] 2.16840.1.704607.3.579.2. 1285 2000 Unknown [id number] 2.840.1.302254.3.579.2. 1285 2000 Unknown [id number] 2.16840.1.938463.3.579.2. 1285 2000 Unknown [id number] 2.840.1.828012.3.579.2. 1285 2000 Unknown [id number] 2.840.1.417825.3.579.2. 1285 2000 Unknown [id number] 2.840.1.640941.3.579.2. 1285 2000 Unknown [id number] 2.16840.1.398732.3.579.2. 1285 2000 Unknown [id number] 2.16840.1.391954.3.579.2. 1285 2000 Unknown [id number] 2.16840.1.346435.3.579.2. 1285 2000 Unknown [id number] 2.16840.1.834789.3.579.2. 1285 1975 Unknown [id number] 2.16.840.1.864561.3.579.2. 356 1975 Unknown [id number] 2.16.840.1.429856.3.579.2. 593 1959 Self-pay 1959 Unknown [id number] Unknown [id number] 2.16.840.1.052819.3.579.2. 593 Unknown [id number] 2.16.840.1.843157.3.579.2. 593 Social History Date Type Detail Facility Sex Assigned At [facility] Other Start: 2000 Sex Assigned At Female F [facility] Start: 01-22-2022 End: 08-27-2022 Tobacco smoking status UTIS Never smoked tobacco [facility] Start: 10-15-2023 End: 09-23-2024 Alcoholic beverage intake Lifetime non-drinker (finding) [facility] Start: 09-22-2023 End: 10-15-2023 History of Social function [facility] Start: 09-22-2023 End: 10-15-2023 Tobacco use panel [facility] Start: 08-27-2022 Alcohol Comment Caffeine intak e: 1-2 cups per day [facility] Start: 2000 Sex assigned at Not on file P [facility] Start: 01-22-2022 Tobacco use and exposure Smokeless tobacco non-user [facility] Start: 12-04-2023 End: 08-20-2024 Alcoholic beverage intake Ex-drinker (finding) [facility] Childcare Unknown [facility] Start: 09-13-2014 Sex Female (finding) [facility] Medical Equipment Procedure Code Equipment Code Equipment Origin al Text Equipment Identifier Dates Myringotomy of both ears TUBE VENT T- MODIFIED FRANCO FDA Start: 12-18-2017 Myringotomy of both ears TUBE VENT T- MODIFIED [place] FDA Start: 12-18-2017 Myringotomy of both ears TUBE VENT T- MODIFIED [place] FDA Start: 12-18-2017 Myringotomy of both ears TUBE VENT T- MODIFIED [place] FDA Start: 12-18-2017 Myringotomy of both ears TUBE VENT T- MODIFIED [place] FDA Start: 12-18-2017 Myringotomy of both ears TUBE VENT T- MODIFIED [place] FDA Start: 12-18-2017 Tube Tympanostom y U Mp Ez [facility] [id number] - [id number] Start: 02-05-2023 Clinical Notes 02-05-2023 to 09-23-2024 Maame Dickson, FLIGHT ATTENDANT/INFLIGHT MANAGER - 09/23/2024 10:00 AM Jhonatan Guillermo MD - 08/12/2024 11:15 AM EDTPatient InstructionsCHRISTINA Hannah - 08/12/2024 11:00 AM EDTPatient InstructionsPatient Instructions Note Date & Type Note Facility 09-23-2024 History of Present illness Narrative Reason for Appointment: Patient ID: James Bustos is a 24 y.o. female who presents for Well Women Visit Patient presents today for Annual Exam. MEDICATIONS Current Outpatient Medications Medication Instructions FLUoxetine (PROZAC) 20 mg, Oral, Daily fluticasone (Flonase) 50 MCG/ACT nasal spray Every 12 hours ipratropium (Atrovent) 0.06 % nasal spray 2 sprays, 3 times daily PRN metFORMIN XR (GLUCOPHAGE-XR) 500 mg, Oral, Daily with evening meal, Do not crush, chew, or split. phentermine (ADIPEX-P) 37.5 mg, Oral, Daily before breakfast ALLERGIES Allergies Allergen Reactions Amoxicillin Other Amoxicillin-Pot Clavulanate GI intolerance PROBLEMS Active Ambulatory Problems Diagnosis Date Noted No Active Ambulatory Problems Resolved Ambulatory Problems Diagnosis Date Noted No Resolved Ambulatory Problems Past Medical History: Diagnosis Date Chronic myringitis of right ear Chronic rhinitis Decreased hearing of left ear Hearing difficulty of both ears Migraine without aura and without status migrainosus, not intractable HISTORY PAST MEDICAL HISTORY SOCIAL HISTORY Past Medical History: Diagnosis Date Chronic myringitis of right ear Chronic rhinitis Decreased hearing of left ear Hearing difficulty of both ears Migraine without aura and without status migrainosus, not intractable Social History Tobacco Use Smoking status: Never Smokeless tobacco: Not on file Substance Use Topics Alcohol use: Never Comment: Caffeine intake: 1-2 cups per day Drug use: Not on file FAMILY HISTORY No family history on file. SURGICAL HISTORY Past Surgical History: Procedure Laterality Date OTHER SURGICAL HISTORY 2009 tubes, tonsils, adenoids OTHER SURGICAL HISTORY 12/18/2017 BTTI REVIEW OF SYSTEMS Review of Systems: Review of Systems Constitutional: Negative. HENT: Negative. Eyes: Negative. Respiratory: Negative. Cardiovascular: Negative. Gastrointestinal: Negative. Genitourinary: Negative. Musculoskeletal: Negative. Skin: Negative. Neurological: Negative. All other systems reviewed and are negative. Hematological: Negative. Endocrine: Negative. Allergic/Immunologic: Negative. OBJECTIVE Objective: Physical Exam Constitutional: Appearance: Normal appearance. She is well-developed. Genitourinary: Vulva normal. Breasts: Breasts are soft. Right: Normal. Left: Normal. Cardiovascular: Rate and Rhythm: Normal rate and regular rhythm. Pulmonary: Effort: Pulmonary effort is normal. Breath sounds: Normal breath sounds. Abdominal: General: Bowel sounds are normal. There is no distension. Palpations: Abdomen is soft. Tenderness: There is no abdominal tenderness. There is no guarding or rebound. Musculoskeletal: General: No swelling. Normal range of motion. Right lower leg: No edema. Left lower leg: No edema. Neurological: Mental Status: She is alert and oriented to person, place, and time. Skin: General: Skin is warm and dry. Psychiatric: Mood and Affect: Mood normal. Behavior: Behavior normal. Vitals and nursing note reviewed. Exam conducted with a bullet slug casting machine operator present. Vitals: Estimated body mass index is 47.95 kg/m as calculated from the following: Height as of this encounter: 5' 7 . Weight as of this encounter: 306 lb 2 oz. BP: 130/72 No LMP recorded. ASSESSMENT & PLAN ICD-10-CM 1. Well woman exam with routine gynecological exam Z01.419 Pap Smear 2. Encounter for weight management Z76.89 phentermine (Adipex-P) 37.5 MG tablet Annual Exam: Patient presents today for an annual exam. Patient states she is doing well and has no complaints. Pap was obtained without difficulty. No orders of the defined types were placed in this encounter. Follow Up: Patient is to return in one year for annual unless needed otherwise. Documented by Maame Dickson NP on behalf of: Maame Dickson NP documented in this encounter [facility] 08-12-2024 History of Present illness Narrative Images from the original note were not included. [facility] [address] [place] [address] SUBJECTIVE: Patient ID: James Bustos is a 24 y.o. female presents today for Chief Complaint Patient presents with eustachiasn tube dysfunction HPI: James Bustos is a 24 y.o. female seen to follow-up ETD. She was last seen in the office on 06/22/24. She noticed increased/improved hearing after her last visit. She finished a course of oral antibiotics around a week ago and noticed that a swollen lymph node returned to normal. HISTORY: Past Medical History: Diagnosis Date Dysfunction of both eustachian tubes 11/06/2022 Eczema History of recurrent ear infection 01/24/2023 HL (hearing loss) 01/24/2023 Morbid obesity with body mass index (BMI) of 50.0 to 59.9 in adult ([facility]) 01/24/2023 Otorrhea of both ears 01/24/2023 Seasonal allergies 01/24/2023 Varicella Visual impairment Wears glasses Past Surgical History: Procedure Laterality Date ADENOIDECTOMY MYRINGOTOMY WITH TUBE Bilateral 02/05/2023 Performed by Arelis Guillermo MD at [facility] NASOPHARYNGOSCOPY DILATION EUSTACHIAN TUBE Bilateral 02/05/2023 Performed by Arelis Guillermo MD at [facility] SKIN BIOPSY 2009 face ? TONSILLECTOMY TONSILLECTOMY ADENOIDECTOMY MYRINGOTOMY W/ TUBES 2009 TYMPANOSTOMY TUBE PLACEMENT Bilateral 2018 WISDOM TOOTH EXTRACTION 2018 Family History Problem Relation Age of Onset Melanoma Mother High Cholesterol Mother Heart disease Father Supraventricular tachycardia Father Anesthesia problems Neg Hx Social History Socioeconomic History Marital status: Single Spouse name: Not on file Number of children: Not on file Years of education: Not on file Highest education level: Not on file Occupational History Not on file Tobacco Use Smoking status: Never Smokeless tobacco: Never Vaping Use Vaping status: Never Used Substance and Sexual Activity Alcohol use: Not Currently Drug use: Not Currently Sexual activity: Yes Partners: Male control/protection: Condom Other Topics Concern Not on file Social History Narrative Not on file Social Drivers of Health Financial Resource Strain: Not on file Food Insecurity: No Food Insecurity (01/24/2023) Hunger Screening Food Insecurity - Worry: Never True Food Insecurity - Inability: Never True Transportation Needs: Not on file Physical Activity: Not on file Stress: Not on file Social Connections: Not on file Interpersonal Safety: Not on file Housing Instability: Not on file Allergies Allergen Reactions Augmentin [Amoxicillin-Pot Clavulanate] GI Disturbance Current Outpatient Medications Medication Sig Dispense Refill doxycycline (ADOXA) 100 MG tablet Take 1 tablet (100 mg total) by mouth in the morning and 1 tablet (100 mg total) before bedtime. Do all this for 10 days. 20 tablet 0 FLUoxetine (PROzac) 10 mg capsule Take 2 capsules (20 mg total) by mouth in the morning. fluticasone propionate (FLONASE) 50 mcg/actuation nasal spray Administer 1 spray into each nostril in the morning. ibuprofen (MOTRIN) 600 mg tablet Take 1 tablet (600 mg total) by mouth every 6 (six) hours as needed for pain. 30 tablet 0 metFORMIN (GLUCOPHAGE) 500 mg tablet Take 1 tablet (500 mg total) by mouth in the morning and 1 tablet (500 mg total) before bedtime. methylPREDNISolone (MEDROL, SIA,) 4 mg tablet Take as directed 21 tablet 0 multivitamin with minerals (HAIR,SKIN AND NAILS ORAL) Take by mouth. phentermine (ADIPEX-P) 37.5 mg tablet Take 1 tablet (37.5 mg total) by mouth every morning before breakfast. azelastine (ASTELIN) 137 mcg (0.1 %) nasal spray Administer 1 spray into each nostril in the morning and 1 spray before bedtime. Use in each nostril as directed. (Patient not taking: Reported on 08/21/2023) 30 mL 12 fluticasone (VERAMYST) 27.5 mcg/actuation nasal spray Administer 2 sprays into each nostril once daily. (Patient not taking: Reported on 08/12/2024) ipratropium (ATROVENT) 42 mcg (0.06 %) nasal spray ADMINISTER 2 SPRAYS INTO EACH NOSTRIL 3 (THREE) TIMES A DAY NEEDED FOR RHINITIS. (Patient not taking: Reported on 08/12/2024) 45 mL 4 No current facility-administered medications for this visit. REVIEW OF SYSTEMS: Review of Systems HENT: Positive for postnasal drip. Negative for ear discharge, ear pain, sinus pressure and sinus pain. Respiratory: Negative for cough and shortness of breath. Neurological: Negative for dizziness, light-headedness and headaches. Data Reviewed: The following tests/records were independently reviewed by Arelis Guillermo MD on date of exam with the patient: Audiogram from 08/12/24: Showing improvement in hearing from previous audiogram in june 2024; normal hearing bilaterally PHYSICAL EXAMINATION: Temp 37.1 C (98.8 F) Ht 170.2 cm (5' 7.01 ) Wt (!) 140.1 kg (308 lb 12.8 oz) BMI 48.35 kg/m Constitutional: General Appearance: Healthy, alert, cooperative, and in no distress Ability to Communicate: Normal ability to communicate and Voice normal Head/Face: Inspection of Head/Face: Normocephalic without obvious abnormality, Atraumatic appearance, and Sinuses non-tender Facial Nerve: Facial nerve symmetrical and intact Salivary Glands: Parotid Gland: Normal, Submandibular Gland: Normal, and Sublingual Gland: Normal Eyes: No gross abnormalities, EOMI, and No Nystagmus Ears: External Ear: Normal bilateral External Auditory Canal: Normal bilateral Tympanic Membranes: Abnormal right Tympanosclerosis and Abnormal left Tympanosclerosis and Tubes present: Patent Middle Ear: Normal bilateral Hearing: Normal bilateral Nose: External Nose: Normal Septum: Midline septum Mucosa/Turbinates: Normal inferior turbinate and Abnormal bilateral Mucosal dryness mild Oral Cavity: Normal lips, Normal teeth, Normal gums, Normal floor of mouth, Normal oral mucosa, and Normal anterior tongue Oropharynx: Normal mucosa, Normal soft palate, Normal hard palate, Normal uvula, Tonsils surgically absent, and Normal Vallecula TMJ: Clicking right and left and Crepitus right and left Neck: Neck supple, No adenopathy, Thyroid normal in size without nodules or tenderness, No palpable neck masses, and Carotids normal Respiratory: No stridor, Normal respiratory effort and No use of accessory muscles Cardiovascular: Regular rate and Regular rhythm Neurologic: Patient is alert and oriented x3 with normal affect and grossly normal cranial nerves ASSESSMENT/PLAN: James was seen today for eustachiasn tube dysfunction. Diagnoses and all orders for this visit: ETD (Eustachian tube dysfunction), bilateral Tympanosclerosis of both ears Today's examination findings were discussed with the patient/patient's parent or guardian. Recommendations for treatment were provided including the following: - Audiogram was performed today in the office. Results were reviewed and all questions and concerns were addressed. - Follow up in 4 months. The patient will contact my office if there are any additional questions or concerns: . Non-emergent messages received through [facility] may take up to 2 business days for a response. Scribe Statement: Scribed for and in the presence of Arelis Guillermo MD by Lidia Cintron (Scribe). Lidia Cintron 08/12/2024 12:19 PM Provider Statement: I Arelis Guillermo MD personally performed the services described in the documentation as described by the above named scribe in my presence. It is both accurate and complete at the time of final signature. Dr. Arelis Guillermo 08/12/2024 3:04 PM Electronically signed by Arelis Guillermo MD Please note that parts of this chart were generated using voice recognition [employer] dictation software. Although every effort was made to ensure the accuracy of this automated trauma counsellor, some errors in trauma counsellor may have occurred. documented in this encounter [employer] 08-12-2024 Instructions Lidia Cintron - 08/12/2024 11:15 AM EDT Today's examination findings were discussed with the patient/patient's parent or guardian. Recommendations for treatment were provided including the following: - Audiogram was performed today in the office. Results were reviewed and all questions and concerns were addressed. - Follow up in 4 months. The patient will contact my office if there are any additional questions or concerns: . Non-emergent messages received through [facility] may take up to 2 business days for a response. documented in this encounter [employer] 08-12-2024 History of Present illness Narrative AUDIOLOGIC EVALUATION Reason for visit: CC: Patient here for recheck of hearing. She reports a ruptured TM 6 weeks ago in the right ear. Dr. Guillermo had tried to put a PET in her right ear and was able to make an incision, however patient passed out before the tube was placed. She reports improved hearing since the incision was made. She is currently on antibiotics. She denies otalgia, otorrhea, tinnitus, or dizziness. Previous testing, performed 06/22/24, revealed mild to moderately-severe CHL in the right ear and a mild CHL rising to WNL in the left. HISTORY: Changes in hearing: improvement in right ear Tinnitus: No Dizziness: No Aural Fullness: Previous history Otalgia: No Otorrhea: No Other significant history: PET in left ear RESULTS: Otoscopic Evaluation: Right Ear: Abnormal TM appearance Left Ear: PE tube visualized Immittance Measures: Right Ear: Type A Left Ear: Type B large ECV, consistent with patent PET Pure Tone Audiometry: Right Ear: Hearing sensitivity is within normal limits 250-8000 Hz Left Ear: Mild loss rising to normal hearing In comparison to previous audio completed on 06/22/24, a significant improvement of hearing sensitivity was noted on the right. Reliability: good Speech Audiometry: SRT/STEAM SHOVELMAN in good agreement WRS: Right Ear: Excellent (100%) Left Ear: Excellent (100%) RECOMMENDATIONS: Follow up with Dr. Arelis Guillermo Retest as medically necessary Torin Hannah [facility] Sl[facility] Sewer documented in this encounter [facility] 06-22-2024 History of Present illness Narrative Images from the original note were not included. [facility] [address] [place] [address], [address] [facility] [address] SUBJECTIVE: Patient ID: James Bustos is a 24 y.o. female presents today for Chief Complaint Patient presents with Earache Ear pressure HPI: Sanjana is a pleasant 24-year-old who present for a follow up regarding right ear pain and pressure. She tried Cipro drops and Tylenol with temporary benefit She then experienced bloody drainage form the right ear for 3 days. Today, she admits to fullness and right ear pain. She is using Flonase sensi mist as needed with benefit. She underwent bilateral ear tube placement and Eustachian tube dilation with me in January 2023. HISTORY: Past Medical History: Diagnosis Date Dysfunction of both eustachian tubes 11/06/2022 Eczema History of recurrent ear infection 01/24/2023 HL (hearing loss) 01/24/2023 Morbid obesity with body mass index (BMI) of 50.0 to 59.9 in adult ([facility]) 01/24/2023 Otorrhea of both ears 01/24/2023 Seasonal allergies 01/24/2023 Varicella Visual impairment Wears glasses Past Surgical History: Procedure Laterality Date ADENOIDECTOMY MYRINGOTOMY WITH TUBE Bilateral 02/05/2023 Performed by Arelis Guillermo MD at [facility] NASOPHARYNGOSCOPY DILATION EUSTACHIAN TUBE Bilateral 02/05/2023 Performed by Arelis Guillermo MD at [facility] SKIN BIOPSY 2009 face ? TONSILLECTOMY TONSILLECTOMY ADENOIDECTOMY MYRINGOTOMY W/ TUBES 2009 TYMPANOSTOMY TUBE PLACEMENT Bilateral 2018 WISDOM TOOTH EXTRACTION 2018 Family History Problem Relation Age of Onset Melanoma Mother High Cholesterol Mother Heart disease Father Supraventricular tachycardia Father Anesthesia problems Neg Hx Social History Socioeconomic History Marital status: Single Spouse name: Not on file Number of children: Not on file Years of education: Not on file Highest education level: Not on file Occupational History Not on file Tobacco Use Smoking status: Never Smokeless tobacco: Never Vaping Use Vaping status: Never Used Substance and Sexual Activity Alcohol use: Not Currently Drug use: Not Currently Sexual activity: Yes Partners: Male control/protection: Condom Other Topics Concern Not on file Social History Narrative Not on file Social Drivers of Health Financial Resource Strain: Not on file Food Insecurity: No Food Insecurity (01/24/2023) Hunger Screening Food Insecurity - Worry: Never True Food Insecurity - Inability: Never True Transportation Needs: Not on file Physical Activity: Not on file Stress: Not on file Social Connections: Not on file Interpersonal Safety: Not on file Housing Instability: Not on file Allergies Allergen Reactions Augmentin [Amoxicillin-Pot Clavulanate] GI Disturbance Current Outpatient Medications Medication Sig Dispense Refill FLUoxetine (PROzac) 10 mg capsule Take 2 capsules (20 mg total) by mouth in the morning. fluticasone propionate (FLONASE) 50 mcg/actuation nasal spray Administer 1 spray into each nostril in the morning. ibuprofen (MOTRIN) 600 mg tablet Take 1 tablet (600 mg total) by mouth every 6 (six) hours as needed for pain. 30 tablet 0 metFORMIN (GLUCOPHAGE) 500 mg tablet Take 1 tablet (500 mg total) by mouth in the morning and 1 tablet (500 mg total) before bedtime. multivitamin with minerals (HAIR,SKIN AND NAILS ORAL) Take by mouth. phentermine (ADIPEX-P) 37.5 mg tablet Take 1 tablet (37.5 mg total) by mouth every morning before breakfast. azelastine (ASTELIN) 137 mcg (0.1 %) nasal spray Administer 1 spray into each nostril in the morning and 1 spray before bedtime. Use in each nostril as directed. (Patient not taking: Reported on 08/21/2023) 30 mL 12 fluticasone (VERAMYST) 27.5 mcg/actuation nasal spray Administer 2 sprays into each nostril once daily. (Patient not taking: Reported on 06/22/2024) ipratropium (ATROVENT) 42 mcg (0.06 %) nasal spray ADMINISTER 2 SPRAYS INTO EACH NOSTRIL 3 (THREE) TIMES A DAY NEEDED FOR RHINITIS. (Patient not taking: Reported on 06/22/2024) 45 mL 4 methylPREDNISolone (MEDROL, SIA,) 4 mg tablet Take as directed (Patient not taking: Reported on 06/22/2024) 21 tablet 0 No current facility-administered medications for this visit. REVIEW OF SYSTEMS: Review of Systems Constitutional: Negative for chills and fever. HENT: Positive for congestion, ear discharge (right), ear pain, postnasal drip and rhinorrhea. Negative for sinus pressure, sinus pain, sore throat and trouble swallowing. Respiratory: Positive for cough. Negative for shortness of breath. Cardiovascular: Negative for palpitations and leg swelling. Data Reviewed: Audiogram 06/22/14: PHYSICAL EXAMINATION: Temp 36.6 C (97.9 F) Ht 170.2 cm (5' 7 ) Wt (!) 136.4 kg (300 lb 12.8 oz) BMI 47.11 kg/m Constitutional: General Appearance: Healthy, alert, cooperative, and in no distress Ability to Communicate: Normal ability to communicate and Voice normal Head/Face: Inspection of Head/Face: Normocephalic without obvious abnormality, Atraumatic appearance, and Sinuses non-tender Facial Nerve: Facial nerve symmetrical and intact Salivary Glands: Parotid Gland: Normal, Submandibular Gland: Normal, and Sublingual Gland: Normal Eyes: No gross abnormalities, EOMI, and No Nystagmus Ears: External Ear: Normal bilateral External Auditory Canal: Normal left and Abnormal right Erythema Tympanic Membranes: Abnormal right Tympanosclerosis and Abnormal left Tubes present: Patent and but extruded. Right tube placed today. Middle Ear: Abnormal right mucoid fluid Hearing: Normal bilateral Nose: External Nose: Normal Septum: Deviated nasal septum right Mucosa/Turbinates: Normal inferior turbinate and Abnormal bilateral Mucosal edema mild Oral Cavity: Normal lips, Normal teeth, Normal gums, Normal floor of mouth, Normal oral mucosa, and Normal anterior tongue Oropharynx: Normal mucosa, Normal soft palate, Normal hard palate, Normal uvula, Tonsils surgically absent, and Normal Vallecula TMJ: Clicking right and left and Crepitus right and left Neck: Neck supple, No adenopathy, Thyroid normal in size without nodules or tenderness, No palpable neck masses, and Carotids normal Respiratory: No stridor, Normal respiratory effort and No use of accessory muscles Cardiovascular: Regular rate and Regular rhythm Neurologic: Patient is alert and oriented x3 with normal affect and grossly normal cranial nerves Myringotomy Procedure Note Pre-operative Diagnosis: Right Eustachian dysfunction Post-operative Diagnosis: Same Procedure: Myringotomy right with PE Tube Placement Surgeon: Arelis Guillermo MD Anesthetic: Topical phenol Indications: History of persistent effusion, acute suppurative otitis media, and/or ETD refractory to medical management. Patient was symptomatic with pain. Procedure Technique: Patient was taken to the procedure room where they were placed in the supine position under the microscope. Right ear: An ear speculum was placed to allow microscopic evaluation. Suction, curette, and/or peroxide were used to remove skin, wax, and debris from the canal and drum. The drum and/or canal was anesthestized. A radial incision was then made in the posterior inferior portion of the drum. Middle ear was suctioned and serous effusion was found and/or removed. Tube unable to be placed due to patient intolerance. Additional Findings: n/a Complications: unable to place tube following suction Patient Status: Unsuccessful ASSESSMENT/PLAN: Malaina was seen today for earache and ear pressure. Diagnoses and all orders for this visit: ETD (Eustachian tube dysfunction), bilateral TMJ (temporomandibular joint disorder) Otalgia, right Ear fullness, right DNS (deviated nasal septum) Tympanosclerosis of right ear History of recurrent ear infection Today's examination findings were discussed with the patient/patient's parent or guardian. Recommendations for treatment were provided including the following: - Audiogram reviewed and results were discussed with the patient. - She is a candidate for right myringotomy with tube placement. Risks and benefits were discussed and she wishes to proceed. Consent obtained. This was unsuccessful due to patient intolerance and vasovagal episode. Unable to place tube following myringotomy and suction of the middle ear. - Follow up in 6 weeks with repeat audiogram. The patient will contact my office if there are any additional questions or concerns: . Non-emergent messages received through [facility] may take up to 2 business days for a response. Scribe Statement: Scribed for and in the presence of Arelis Guillermo MD by Madleyn Ruiz (scribe). Madelyn Ruiz 06/22/2024 10:46 AM Provider Statement: I Arelis Guillermo MD personally performed the services described in the documentation as described by the above named scribe in my presence. It is both accurate and complete at the time of final signature. Dr. Arelis Guillermo 06/22/2024 12:17 PM Electronically signed by Arelis Guillermo MD Please note that parts of this chart were generated using voice recognition M*Modal dictation software. Although every effort was made to ensure the accuracy of this automated trauma counsellor, some errors in trauma counsellor may have occurred. Savanah Montoya MA 06/22/24 1020 documented in this encounter [facility] 06-22-2024 Instructions Madelyn Ruiz - 06/22/2024 10:00 AM EDT Today's examination findings were discussed with the patient/patient's parent or guardian. Recommendations for treatment were provided including the following: - Audiogram reviewed and results were discussed with the patient. This revealed tymp B tymps bilaterally. Asymmetry noted, right poorer. Physical exam today revealed mucoid fluid in the right ear. - She is a candidate for right myringotomy with tube placement. Risks and benefits were discussed and she wishes to proceed. Consent obtained. This was unsuccessful due to patient intolerance. Unable to place tube following suction. - Follow up in 6 weeks with repeat audiogram. The patient will contact my office if there are any additional questions or concerns: . Non-emergent messages received through [facility] may take up to 2 business days for a response. documented in this encounter [facility] 06-22-2024 History of Present illness Narrative AUDIOLOGIC EVALUATION Reason for visit: James Bustos, a 24 y.o. female, was seen today for right ear concerns. She experienced a right TM rupture with associated otorrhea, sharp otalgia, and imbalance on 06/13/24 for which she was seen at urgent care. Management has included drops and oral antibiotics. She reported persistent difficulty with hearing from the right ear with associated constant aural pressure and constant aching otalgia. She noted her right ear can pop when she swallows. Right intermittent ringing tinnitus since recent TM rupture. Positive history of BMT placement with right tube having been extruded. Denied vertiginous dizziness and left ear concerns. A previous hearing test completed on 08/21/23 revealed mild at 250Hz rising to normal hearing bilaterally. HISTORY: Concerns with hearing: Right ear Tinnitus: Right ear, intermittent Dizziness: Yes Otalgia: Right ear, constant Otorrhea: Right ear, intermittent Aural Fullness: Right ear, constant Hx Ear Infections: Yes Ear Surgeries: BMT, right tube extruded Other significant history: None RESULTS: Otoscopic Evaluation: Right Ear: Clear canal Left Ear: PE tube in the TM Immittance Measures: Right Ear: Type B normal ECV Left Ear: Type B large ECV, consistent with patent PET Pure Tone Audiometry (Conventional): Right Ear: Mild to moderately-severe CHL Left Ear: Mild CHL rising to WNL Asymmetry noted: Yes, right ear poorer ear In comparison to the previous hearing test, a significant decline in right ear hearing was noted. Reliability: good Speech Audiometry (Spondee Word List) : SRT/STEAM SHOVELMAN are in good agreement in both ears. WRS (NU-6): Right Ear: Excellent (100%) Left Ear: Excellent (100%) RECOMMENDATIONS: Follow up with Dr. Arelis Guillermo Repeat hearing test following otologic management Use hearing protection in all loud environments Torin Guaman [facility] [employer] DIA Abbrev- iation Definition Degree of hearing sensitivity dB range WNL Within normal limits Pediatric WNL 0-15 SNHL SSNHL Sensorineural hearing loss Sudden SNHL Adult WNL 0-25 CHL Conductive hearing loss Pediatric Slight 16-25 MHL Mixed hearing loss Mild 26-40 SRT Speech administrative assistant receptionist threshold Moderate 41-55 WRS Word recognition score Moderately-Severe 56-70 ME Middle ear Severe 71-90 TM Tympanic membrane Profound 91+ PET Pressure Equalization Tube BMT Bilateral myringotomy and tube placement TTSI transtympanic steroid injection documented in this encounter [facility] 06-21-2024 History of Present illness Narrative Reason for Appointment: Patient ID: James Bustos is a 24 y.o. female who presents for encounter for weight management Patient presents today for a weight management consultation. Patient has been prescribed Adipex and she is here for her 4th prescription. Today's Vitals: Estimated body mass index is 47.27 kg/m as calculated from the following: Height as of 05/10/24: 5' 7 . Weight as of this encounter: 301 lb 12.8 oz. Previous Weight/BMI: Wt Readings from Last 3 Encounters: 06/21/24 301 lb 12.8 oz 05/10/24 303 lb 02/16/24 319 lb BMI Readings from Last 3 Encounters: 06/21/24 47.27 kg/m 05/10/24 47.46 kg/m 02/16/24 49.96 kg/m Allergies as of 06/21/2024 - Reviewed 06/21/2024 Allergen Reaction Noted Amoxicillin Other 09/16/2022 Amoxicillin-pot clavulanate GI intolerance 01/22/2022 Past Medical History: Diagnosis Date Chronic myringitis of right ear Chronic rhinitis Decreased hearing of left ear Hearing difficulty of both ears Migraine without aura and without status migrainosus, not intractable (CMS/HCC) Past Surgical History: Procedure Laterality Date OTHER SURGICAL HISTORY 2009 tubes, tonsils, adenoids OTHER SURGICAL HISTORY 12/18/2017 BTTI Review of Systems: Review of Systems All other systems reviewed and are negative. Objective Physical Exam Constitutional: Appearance: Normal appearance. She is well-developed. Cardiovascular: Rate and Rhythm: Normal rate and regular rhythm. Pulmonary: Effort: Pulmonary effort is normal. Breath sounds: Normal breath sounds. Abdominal: General: Bowel sounds are normal. There is no distension. Palpations: Abdomen is soft. Tenderness: There is no abdominal tenderness. There is no guarding or rebound. Musculoskeletal: General: No swelling. Normal range of motion. Right lower leg: No edema. Left lower leg: No edema. Neurological: Mental Status: She is alert and oriented to person, place, and time. Skin: General: Skin is warm and dry. Psychiatric: Mood and Affect: Mood normal. Behavior: Behavior normal. Vitals and nursing note reviewed. Exam conducted with a bullet slug casting machine operator present. Assessment/Plan Encounter Diagnosis Name Primary? Encounter for weight management Adipex: Patient presents today for 4thAdipex prescription. Patient desires additional weigh loss and she is currently taking metformin along with working out to achieve further results. Weight and blood pressure has been captured and I have discussed/reiterated the importance of keeping a food journal, proper nutrition/diet, and exercise regimen. Patient verbalized understanding. Patient has lost more than 5% of her initial body weight Follow Up: Patient is to return to the office in 1 month for further evaluation to assess patient progress. Weight and blood pressure will need to be obtained in order for patient to receive 5th Adipex prescription. Documented by: Paola Sepulveda LPN on behalf of YAMEL Henao documented in this encounter [facility] 06-13-2024 Note Patient Education Caregiving Ear Drops, Adult Your doctor has found that you have a condition that requires you to use ear drops. Ear drops are a medicine that is placed in the ear. You may need to use ear drops in one ear or both ears. The following information offers guidance on how to use your ear drops. Your doctor may also give you more instructions. Supplies needed: ??? Cotton balls. ??? Ear drops. How to put ear drops into your ear 1. Wash your hands with soap and water for at least 20 seconds. If you cannot use soap and water, use hand claims coordinator. 2. Make sure your ears are clean and dry. 3. If there is earwax or fluid at the outer part of the ear canal, wipe it out gently with a cotton-tipped swab. 4. Warm the medicine by holding it in your hand for a few minutes. 5. Shake the medicine gently to mix the ear drops. 6. Use the dropper to draw up the ear drops. You will need to squeeze the round part of the dropper to do this. 7. Put the drops in your ear as told. Hold the dropper above your ear. Do not let the dropper touch your ear. The medicine may go in more easily if you pull the flap of your ear up and back while you put the drops in. 8. To make sure your ear soaks up the medicine, do one of these things: ??? Lie down for 10 minutes. The ear with the medicine in it should face up. This will cause the drops to stay in the ear canal and fill the canal. ??? Put a cotton ball in your ear. Do not push it deeper into your ear. Take out the cotton ball when the drops have been soaked up or after 15?30 minutes have passed. 9. If you need to put drops in your other ear, repeat the same steps. Your doctor will tell you if you should put drops in both ears. 10. Wash your hands with soap and water for at least 20 seconds after using ear drops. If you cannot use soap and water, use hand claims coordinator. Follow these instructions at home: ??? Use the ear drops for as long as your doctor tells you to. Do not stop using them even if you start to feel better. ??? Always wash your hands for at least 20 seconds before and after handling the ear drops. ??? Keep the ear drops at room temperature. ??? Do not wash out your ears unless told to by your doctor. Contact a doctor if: ??? Your condition gets worse. ??? Your pain or itching gets worse. ??? Unusual fluid is coming from your ear, especially if the fluid smells bad. ??? You have new trouble hearing. ??? You get a rash around your ear. ??? You have used the ear drops for the amount of time told by your doctor, but you do not feel better. Get help right away if: ??? You feel like the room is spinning and you feel like you might vomit. This condition is called vertigo. ??? The outside of your ear becomes red or swollen. ??? You have a very bad headache with or without a stiff neck. This information is not intended to replace advice given to you by your health care provider. Make sure you discuss any questions you have with your health care provider. Document Revised: 07/02/2022 Document Reviewed: 06/10/2022 [employer] Patient Education ? 2023 [employer]. ENT Eardrum Rupture An eardrum rupture is a hole (perforation) in the eardrum. The eardrum is a thin, round tissue inside the ear. It allows you to hear. This condition may cause pain and hearing loss. There is often little or no long-term hearing loss. What are the causes? This condition may be caused by: ??? An infection. ??? An injury from: ? Putting a thin object into the ear. ? Getting hit on the side of the head. ? Falling onto water or a flat surface. ? Changes in pressure that can happen from flying, scuba diving, or a very loud noise. ??? Inserting a cotton swab in the ear. ??? Long-term ear problems. ??? Surgery on the ear. ??? Getting a tube called a PE tube removed or having it fall out. This is a tube placed during a surgery to help with ear problems. What increases the risk? Having had PE tubes put in your ears. ??? Having an ear infection. ??? Playing sports that: ? Involve balls or contact with other players. ? Take place in water, such as diving, scuba diving, or waterskiing. What are the signs or symptoms? Pain. ??? Ringing in the ear. ??? Fluid leaking from the ear. ??? Hearing loss. ??? Dizziness. How is this treated? The eardrum often heals on its own in a few weeks. If your eardrum does not heal, your doctor may recommend surgery to fix the eardrum. You may also need antibiotic medicine to help prevent infection. Follow these instructions at home: Medicines ??? Take [id number] and prescription medicines only as told by your doctor. ??? If you were prescribed an antibiotic medicine, use it as told by your doctor. Do not stop using it even if you start to feel better. Caring for your ear ??? Keep your ear dry. Follow instructions from (more content not included)... [facility] 05-10-2024 History of Present illness Narrative Reason for Appointment: Patient ID: James Bustos is a 24 y.o. female who presents for Weight Management (Pt present today for Adipex #8 visit. ) Patient presents today for Weight Management Consult. MEDICATIONS Current Outpatient Medications Medication Instructions ciprofloxacin-dexAMETHasone (CiproDEX) otic suspension 4 drops, As needed FLUoxetine (PROZAC) 20 mg, Oral, Daily fluticasone (Flonase) 50 MCG/ACT nasal spray Every 12 hours ipratropium (Atrovent) 0.06 % nasal spray 2 sprays, 3 times daily PRN metFORMIN XR (GLUCOPHAGE-XR) 500 mg, Oral, Daily with evening meal, Do not crush, chew, or split. phentermine (ADIPEX-P) 37.5 mg, Oral, Daily phentermine (ADIPEX-P) 37.5 mg, Oral, Daily before breakfast phentermine (ADIPEX-P) 37.5 mg, Oral, Daily before breakfast phentermine (ADIPEX-P) 37.5 mg, Oral, Daily before breakfast phentermine (ADIPEX-P) 37.5 mg, Oral, Daily before breakfast ALLERGIES Allergies Allergen Reactions Amoxicillin Other Amoxicillin-Pot Clavulanate GI intolerance PROBLEMS Active Ambulatory Problems Diagnosis Date Noted No Active Ambulatory Problems Resolved Ambulatory Problems Diagnosis Date Noted No Resolved Ambulatory Problems Past Medical History: Diagnosis Date Chronic myringitis of right ear Chronic rhinitis Decreased hearing of left ear Hearing difficulty of both ears Migraine without aura and without status migrainosus, not intractable (CMS/HCC) HISTORY PAST MEDICAL HISTORY SOCIAL HISTORY Past Medical History: Diagnosis Date Chronic myringitis of right ear Chronic rhinitis Decreased hearing of left ear Hearing difficulty of both ears Migraine without aura and without status migrainosus, not intractable (CMS/HCC) Social History Tobacco Use Smoking status: Never Smokeless tobacco: Not on file Substance Use Topics Alcohol use: Never Comment: Caffeine intake: 1-2 cups per day Drug use: Not on file FAMILY HISTORY No family history on file. SURGICAL HISTORY Past Surgical History: Procedure Laterality Date OTHER SURGICAL HISTORY 2009 tubes, tonsils, adenoids OTHER SURGICAL HISTORY 12/18/2017 BTTI REVIEW OF SYSTEMS Review of Systems: Review of Systems Constitutional: Negative. HENT: Negative. Eyes: Negative. Respiratory: Negative. Cardiovascular: Negative. Gastrointestinal: Negative. Genitourinary: Negative. Musculoskeletal: Negative. Skin: Negative. Neurological: Negative. All other systems reviewed and are negative. Hematological: Negative. Endocrine: Negative. Allergic/Immunologic: Negative. OBJECTIVE Objective: Physical Exam Constitutional: Appearance: Normal appearance. She is normal weight. HENT: Head: Normocephalic. Cardiovascular: Rate and Rhythm: Normal rate. Pulses: Normal pulses. Pulmonary: Effort: Pulmonary effort is normal. Breath sounds: Normal breath sounds. Abdominal: Palpations: Abdomen is soft. Musculoskeletal: General: Normal range of motion. Neurological: General: No focal deficit present. Mental Status: She is alert and oriented to person, place, and time. Psychiatric: Mood and Affect: Mood normal. Behavior: Behavior normal. Thought Content: Thought content normal. Judgment: Judgment normal. Vitals and nursing note reviewed. Vitals: Estimated body mass index is 47.46 kg/m as calculated from the following: Height as of this encounter: 5' 7 . Weight as of this encounter: 303 lb. BP: 120/72 Patient's last menstrual period was 04/22/2024. ASSESSMENT & PLAN ICD-10-CM 1. Weight gain R63.5 2. Encounter for weight management Z76.89 phentermine (Adipex-P) 37.5 MG tablet 3. Mood changes R45.86 FLUoxetine (PROzac) 10 MG capsule Patient presents today fAdipex prescription. Patient desires additional weigh loss and she is currently taking metformin along with working out to achieve further results.Weight and blood pressure has been captured and it has been discussed/reiterated the importance of keeping a food journal, proper nutrition/diet, and exercise regimen. Patient verbalized understanding. Patient has lost more than 5% of her initial body weight Patient also requests for increase in prozac, states feeling better but still has some bad days. We will increase to 20mg daily Follow Up: Patient is to return to the office in 1 month for further evaluation to assess patient progress. Weight and blood pressure will need to be obtained in order for patient to receive 4th Adipex prescription. Documented by YAMEL Henao on behalf of: YAMEL Henao documented in this encounter [facility] 03-11-2024 History of Present illness Narrative Images from the original note were not included. [facility] [address] [place] [address] [facility] [id number] SUBJECTIVE: Patient ID: James Bustos is a 23 y.o. female presents today for Chief Complaint Patient presents with Follow-up HPI: James Bustos is a 23 y.o. female seen to follow-up bilateral ETD, vasomotor rhinitis, and chronic sinusitis of both maxillary sinuses. Patient underwent BMT with PE tube placement and nasopharyngoscopy dilation eustachian tube on 02/05/2023. She had two sets of ear tubes before this surgery. Patient was last seen in office on 12/04/2023. She has had nasal congestion and drainage down her throat for the past 2 weeks, but her symptoms are beginning to improve. She did not have ear pain or drainage with her recent upper respiratory infection. She recently completed a CT sinuses at [facility] that was ordered during last visit. HISTORY: Past Medical History: Diagnosis Date Dysfunction of both eustachian tubes 11/06/2022 Eczema History of recurrent ear infection 01/24/2023 HL (hearing loss) 01/24/2023 Morbid obesity with body mass index (BMI) of 50.0 to 59.9 in adult ([facility]) 01/24/2023 Otorrhea of both ears 01/24/2023 Seasonal allergies 01/24/2023 Varicella Visual impairment Wears glasses Past Surgical History: Procedure Laterality Date ADENOIDECTOMY MYRINGOTOMY WITH TUBE Bilateral 02/05/2023 Performed by Arelis Guillermo MD at [facility] NASOPHARYNGOSCOPY DILATION EUSTACHIAN TUBE Bilateral 02/05/2023 Performed by Arelis Guillermo MD at [facility] SKIN BIOPSY 2009 face ? TONSILLECTOMY TONSILLECTOMY ADENOIDECTOMY MYRINGOTOMY W/ TUBES 2009 TYMPANOSTOMY TUBE PLACEMENT Bilateral 2018 WISDOM TOOTH EXTRACTION 2018 Family History Problem Relation Age of Onset Melanoma Mother High Cholesterol Mother Heart disease Father Supraventricular tachycardia Father Anesthesia problems Neg Hx Social History Socioeconomic History Marital status: Single Spouse name: Not on file Number of children: Not on file Years of education: Not on file Highest education level: Not on file Occupational History Not on file Tobacco Use Smoking status: Never Smokeless tobacco: Never Vaping Use Vaping status: Never Used Substance and Sexual Activity Alcohol use: Not Currently Drug use: Not Currently Sexual activity: Yes Partners: Male control/protection: Condom Other Topics Concern Not on file Social History Narrative Not on file Social Drivers of Health Financial Resource Strain: Not on file Food Insecurity: No Food Insecurity (01/24/2023) Hunger Screening Food Insecurity - Worry: Never True Food Insecurity - Inability: Never True Transportation Needs: Not on file Physical Activity: Not on file Stress: Not on file Social Connections: Not on file Interpersonal Safety: Not on file Housing Instability: Not on file Allergies Allergen Reactions Augmentin [Amoxicillin-Pot Clavulanate] GI Disturbance Current Outpatient Medications Medication Sig Dispense Refill FLUoxetine (PROzac) 10 mg capsule Take 1 capsule (10 mg total) by mouth in the morning. fluticasone (VERAMYST) 27.5 mcg/actuation nasal spray Administer 2 sprays into each nostril once daily. ibuprofen (MOTRIN) 600 mg tablet Take 1 tablet (600 mg total) by mouth every 6 (six) hours as needed for pain. 30 tablet 0 ipratropium (ATROVENT) 42 mcg (0.06 %) nasal spray ADMINISTER 2 SPRAYS INTO EACH NOSTRIL 3 (THREE) TIMES A DAY NEEDED FOR RHINITIS. 45 mL 4 metFORMIN (GLUCOPHAGE) 500 mg tablet Take 1 tablet (500 mg total) by mouth in the morning and 1 tablet (500 mg total) before bedtime. methylPREDNISolone (MEDROL, SIA,) 4 mg tablet Take as directed 21 tablet 0 multivitamin with minerals (HAIR,SKIN AND NAILS ORAL) Take by mouth. phentermine (ADIPEX-P) 37.5 mg tablet Take 1 tablet (37.5 mg total) by mouth every morning before breakfast. azelastine (ASTELIN) 137 mcg (0.1 %) nasal spray Administer 1 spray into each nostril in the morning and 1 spray before bedtime. Use in each nostril as directed. (Patient not taking: Reported on 08/21/2023) 30 mL 12 fluticasone propionate (FLONASE) 50 mcg/actuation nasal spray Administer 1 spray into each nostril in the morning. (Patient not taking: Reported on 03/04/2023) No current facility-administered medications for this visit. REVIEW OF SYSTEMS: Review of Systems Constitutional: Negative for chills and fever. HENT: Positive for congestion, hearing loss (right ear) and postnasal drip. Negative for ear discharge, ear pain and tinnitus. Eyes: Negative for redness. Respiratory: Positive for cough. Negative for shortness of breath. Cardiovascular: Negative for chest pain and palpitations. Gastrointestinal: Negative for nausea and vomiting. Musculoskeletal: Negative for gait problem. Skin: Negative for color change. Allergic/Immunologic: Negative for environmental allergies. Neurological: Negative for dizziness, light-headedness and headaches. Hematological: Does not bruise/bleed easily. Psychiatric/Behavioral: Negative for confusion. Data Reviewed: Audiogram 03/11/2024: PHYSICAL EXAMINATION: Temp 36.9 C (98.4 F) Ht 170.2 cm (5' 7.01 ) Wt (!) 142.6 kg (314 lb 6.4 oz) BMI 49.23 kg/m Constitutional: General Appearance: Healthy, alert, cooperative, and in no distress Ability to Communicate: Normal ability to communicate and Voice normal Head/Face: Inspection of Head/Face: Normocephalic without obvious abnormality, Atraumatic appearance, and Sinuses non-tender Facial Nerve: Facial nerve symmetrical and intact Salivary Glands: Parotid Gland: Normal, Submandibular Gland: Normal, and Sublingual Gland: Normal Eyes: No gross abnormalities, EOMI, and No Nystagmus Ears: External Ear: Normal bilateral External Auditory Canal: Normal left and Abnormal right Canal abnormal due to tube present Tympanic Membranes: Abnormal right Tympanosclerosis and Abnormal left Tubes present: Patent Middle Ear: Normal bilateral Hearing: Normal bilateral Nose: External Nose: Normal Respiratory: No stridor, Normal respiratory effort and No use of accessory muscles Cardiovascular: Regular rate and Regular rhythm Neurologic: Patient is alert and oriented x3 with normal affect and grossly normal cranial nerves Microscopic Evaluation of the Ear(s): Pre Op Diagnosis: ETD, bilateral Post Op Diagnosis: Same Procedure: Microscopic evaluation of ear(s) Surgeon: Arelis Guillermo MD Anesthesia: none Complications: none Procedure note: Patient was placed in a supine position. Right ear tube was removed from ear canal with alligator forceps. Procedure was successful. Post operative instructions were given. ASSESSMENT/PLAN: James was seen today for follow-up. Diagnoses and all orders for this visit: Dysfunction of both eustachian tubes Vasomotor rhinitis Chronic sinusitis of both maxillary sinuses Tympanosclerosis of right ear Today's examination findings were discussed with the patient/patient's parent or guardian. Recommendations for treatment were provided including the following: - Right ear tube was removed from ear canal in office today. Left ear tube is still in place and present. - I will obtain the CT sinuses results recently completed at [facility]. - Follow up in 6 months with audiogram. The patient will contact my office if there are any additional questions or concerns: . Non-emergent messages received through [facility] may take up to 2 business days for a response. Scribe Statement: Scribed for and in the presence of Arelis Guillermo MD by Lesley Lopez (gil). Lesley Lopez 03/11/2024 2:25 PM. Provider Statement: I Arelis Guillermo MD personally performed the services described in the documentation as described by the above named scribe in my presence. It is both accurate and complete at the time of final signature. Dr. Arelis Guillermo 03/11/2024 12:33 PM Electronically signed by Arelis Guillermo MD Please note that parts of this chart were generated using voice recognition M*Modal dictation software. Although every effort was made to ensure the accuracy of this automated trauma counsellor, some errors in trauma counsellor may have occurred. Lesley Lopez CNA 03/11/24 1427 Lesley Lopez CNA 03/11/24 1434 Lesley Lopez CNA 03/11/24 1704 documented in this encounter [facility] 03-11-2024 Instructions Lesley Lopez CNA - 03/11/2024 2:15 PM EST Today's examination findings were discussed with the patient/patient's parent or guardian. Recommendations for treatment were provided including the following: - Right ear tube was removed from ear canal in office today. Left ear tube is still in place and present. - I will obtain the CT sinuses results recently completed at [facility]. - Follow up in 6 months with audiogram. The patient will contact my office if there are any additional questions or concerns: . Non-emergent messages received through [facility] may take up to 2 business days for a response. documented in this encounter [facility] 03-11-2024 History of Present illness Narrative TYMPANOMETRY EVALUATION Reason for visit: CC: A tympanometry assessment was completed today. RESULTS: Otoscopic Evaluation: Right Ear: Extruded PE tube Left Ear: PE tube visualized Immittance Measures: Right Ear: Type A Left Ear: Unable to maintain hermetic seal for measurement RECOMMENDATIONS: Follow up with Dr. Arelis Guillermo Re-test per otologic managment Torin Sanchez, DOMONIQUE-A Slip Cover Sewer documented in this encounter [facility] 02-16-2024 History of Present illness Narrative Reason for Appointment: Patient ID: James Bustos is a 23 y.o. female who presents for Her 5th Adipex visit. Patient presents today for a weight management consultation. Patient has been prescribed Adipex and she is here for her 3rd prescription. Today's Vitals: Estimated body mass index is 50.4 kg/m as calculated from the following: Height as of 09/16/22: 5' 7 . Weight as of 01/14/24: 321 lb 12.8 oz. Previous Weight/BMI: Wt Readings from Last 3 Encounters: 01/14/24 321 lb 12.8 oz 10/15/23 327 lb 12.8 oz 09/22/23 336 lb BMI Readings from Last 3 Encounters: 01/14/24 50.40 kg/m 10/15/23 51.34 kg/m 09/22/23 52.63 kg/m Allergies as of 02/16/2024 - Reviewed 02/16/2024 Allergen Reaction Noted Amoxicillin Other 09/16/2022 Amoxicillin-pot clavulanate GI intolerance 01/22/2022 Past Medical History: Diagnosis Date Chronic myringitis of right ear Chronic rhinitis Decreased hearing of left ear Hearing difficulty of both ears Migraine without aura and without status migrainosus, not intractable ([facility]) Past Surgical History: Procedure Laterality Date OTHER SURGICAL HISTORY 2009 tubes, tonsils, adenoids OTHER SURGICAL HISTORY 12/18/2017 BTTI Review of Systems: Review of Systems Constitutional: Negative. HENT: Negative. Eyes: Negative. Respiratory: Negative. Cardiovascular: Negative. Gastrointestinal: Negative. Genitourinary: Negative. Musculoskeletal: Negative. Skin: Negative. Neurological: Negative. All other systems reviewed and are negative. Hematological: Negative. Endocrine: Negative. Allergic/Immunologic: Negative. Objective Physical Exam Constitutional: Appearance: Normal appearance. She is normal weight. HENT: Head: Normocephalic. Cardiovascular: Rate and Rhythm: Normal rate. Pulses: Normal pulses. Pulmonary: Effort: Pulmonary effort is normal. Breath sounds: Normal breath sounds. Abdominal: Palpations: Abdomen is soft. Musculoskeletal: General: Normal range of motion. Neurological: General: No focal deficit present. Mental Status: She is alert and oriented to person, place, and time. Psychiatric: Mood and Affect: Mood normal. Behavior: Behavior normal. Thought Content: Thought content normal. Judgment: Judgment normal. Vitals and nursing note reviewed. Assessment/Plan Encounter Diagnosis Name Primary? Weight gain Adipex: Patient presents today for 5 thAdipex prescription. Patient desires additional weigh loss and she is currently taking metformin along with working out to achieve further results. Weight and blood pressure has been captured and I have discussed/reiterated the importance of keeping a food journal, proper nutrition/diet, and exercise regimen. Patient verbalized understanding. Patient has lost more than 5% of her initial body weight Follow Up: Pt was given a 90 day supply of Adipex at today's visit. Patient is to return to office for annual well women exam unless needed otherwise. Documented by: Concetta Rivers MA on behalf of YAMEL Henao documented in this encounter [facility] 01-14-2024 History of Present illness Narrative Reason for Appointment: Patient ID: James Bustos is a 23 y.o. female who presents for Adipex #2 and Weight Management Patient presents today for a weight management consultation. Patient has been prescribed Adipex and she is here for her 2nd prescription. Today's Vitals: Estimated body mass index is 50.4 kg/m as calculated from the following: Height as of 09/16/22: 5' 7 . Weight as of this encounter: 321 lb 12.8 oz. Previous Weight/BMI: Wt Readings from Last 2 Encounters: 01/14/24 321 lb 12.8 oz 10/15/23 327 lb 12.8 oz BMI Readings from Last 2 Encounters: 01/14/24 50.40 kg/m 10/15/23 51.34 kg/m Allergies as of 01/14/2024 - Reviewed 01/14/2024 Allergen Reaction Noted Amoxicillin Other 09/16/2022 Amoxicillin-pot clavulanate GI intolerance 01/22/2022 Past Medical History: Diagnosis Date Chronic myringitis of right ear Chronic rhinitis Decreased hearing of left ear Hearing difficulty of both ears Migraine without aura and without status migrainosus, not intractable ([facility]) Past Surgical History: Procedure Laterality Date OTHER SURGICAL HISTORY 2009 tubes, tonsils, adenoids OTHER SURGICAL HISTORY 12/18/2017 BTTI Assessment/Plan Encounter Diagnosis Name Primary? Encounter for weight management Adipex: Patient presents today for 2nd Adipex prescription. Patients weight and blood pressure has been captured and discussed with the patient. I have discussed/reiterated the importance of keeping a food journal, proper nutrition/diet, and exercise regimen while taking Adipex. Patient verbalized understanding and was given a printed prescription signed by provider to take to their local pharmacy. Follow Up: Patient is to return to the office in 1 month for further evaluation to assess patient progress. Weight and blood pressure will need to be obtained in order for patient to receive 3rd prescription. Documented by: Mishel Peralta LPN on behalf of YAMEL Henao documented in this encounter [facility] 12-04-2023 History of Present illness Narrative [facility] [address] [place] [address] [facility] [id number] SUBJECTIVE: Patient ID: James Bustos is a 23 y.o. female presents today for Chief Complaint Patient presents with Follow-up HPI: patient is here for three month follow up for ear fullness right side. She currently uses Flonase Sensimist, could not tolerate saline irrigations. Had negative allergy testing in the past. She did not tolerate azelastine but did not try ipratroprium bromide spray yet. She has had recent up-tick in nasal drainage, congestion, and ear pain with fevers over the weekend. At baseline she still has nasal congestion and drainage that is relatively constant. She does not recall ever having imaging of the sinuses in the past. She did not see pcp or UC, because she was coming here today. She denies dyspnea and cough. HISTORY: Past Medical History: Diagnosis Date Dysfunction of both eustachian tubes 11/06/2022 Eczema History of recurrent ear infection 01/24/2023 HL (hearing loss) 01/24/2023 Morbid obesity with body mass index (BMI) of 50.0 to 59.9 in adult ([facility]) 01/24/2023 Otorrhea of both ears 01/24/2023 Seasonal allergies 01/24/2023 Varicella Visual impairment Wears glasses Past Surgical History: Procedure Laterality Date ADENOIDECTOMY MYRINGOTOMY WITH TUBE Bilateral 02/05/2023 Performed by Arelis Guillermo MD at [facility] NASOPHARYNGOSCOPY DILATION EUSTACHIAN TUBE Bilateral 02/05/2023 Performed by Arelis Guillermo MD at [facility] SKIN BIOPSY 2009 face ? TONSILLECTOMY TONSILLECTOMY ADENOIDECTOMY MYRINGOTOMY W/ TUBES 2009 TYMPANOSTOMY TUBE PLACEMENT Bilateral 2018 WISDOM TOOTH EXTRACTION 2018 Family History Problem Relation Age of Onset Melanoma Mother High Cholesterol Mother Heart disease Father Supraventricular tachycardia Father Anesthesia problems Neg Hx Social History Socioeconomic History Marital status: Single Spouse name: Not on file Number of children: Not on file Years of education: Not on file Highest education level: Not on file Occupational History Not on file Tobacco Use Smoking status: Never Smokeless tobacco: Never Vaping Use Vaping status: Never Used Substance and Sexual Activity Alcohol use: Not Currently Drug use: Not Currently Sexual activity: Yes Partners: Male control/protection: Condom Other Topics Concern Not on file Social History Narrative Not on file Social Drivers of Health Financial Resource Strain: Not on file Food Insecurity: No Food Insecurity (01/24/2023) Hunger Screening Food Insecurity - Worry: Never True Food Insecurity - Inability: Never True Transportation Needs: Not on file Physical Activity: Not on file Stress: Not on file Social Connections: Not on file Interpersonal Safety: Not on file Housing Instability: Not on file Allergies Allergen Reactions Augmentin [Amoxicillin-Pot Clavulanate] GI Disturbance Current Outpatient Medications Medication Sig Dispense Refill fluticasone (VERAMYST) 27.5 mcg/actuation nasal spray Administer 2 sprays into each nostril once daily. metFORMIN (GLUCOPHAGE) 500 mg tablet Take 1 tablet (500 mg total) by mouth in the morning and 1 tablet (500 mg total) before bedtime. phentermine (ADIPEX-P) 37.5 mg tablet Take 1 tablet (37.5 mg total) by mouth every morning before breakfast. azelastine (ASTELIN) 137 mcg (0.1 %) nasal spray Administer 1 spray into each nostril in the morning and 1 spray before bedtime. Use in each nostril as directed. (Patient not taking: Reported on 08/21/2023) 30 mL 12 fluticasone propionate (FLONASE) 50 mcg/actuation nasal spray Administer 1 spray into each nostril in the morning. (Patient not taking: Reported on 12/04/2023) ibuprofen (MOTRIN) 600 mg tablet Take 1 tablet (600 mg total) by mouth every 6 (six) hours as needed for pain. (Patient not taking: Reported on 12/04/2023) 30 tablet 0 methylPREDNISolone (MEDROL, SIA,) 4 mg tablet Take as directed (Patient not taking: Reported on 03/04/2023) 21 tablet 0 multivitamin with minerals (HAIR,SKIN AND NAILS ORAL) Take by mouth. (Patient not taking: Reported on 12/04/2023) No current facility-administered medications for this visit. REVIEW OF SYSTEMS: Review of Systems Constitutional: Positive for chills and fever. HENT: Positive for congestion (green colored mucus), ear pain (right), postnasal drip, sinus pressure, sinus pain, sneezing and tinnitus (sounds like white noise in right ear). Eyes: Negative for redness. Respiratory: Positive for cough. Negative for shortness of breath. Gastrointestinal: Negative for nausea and vomiting. Musculoskeletal: Negative for gait problem. Skin: Negative for color change. Allergic/Immunologic: Negative for environmental allergies. Neurological: Positive for headaches. Negative for dizziness and light-headedness. Hematological: Bruises/bleeds easily. Psychiatric/Behavioral: Negative for confusion. Data Reviewed: PHYSICAL EXAMINATION: Temp 36.8 C (98.2 F) Resp 18 Ht 170.2 cm (5' 7 ) Wt (!) 148.2 kg (326 lb 12.8 oz) BMI 51.18 kg/m Constitutional: General Appearance: Healthy, alert, cooperative, and in no distress Ability to Communicate: Normal ability to communicate and Voice normal Head/Face: Inspection of Head/Face: Normocephalic without obvious abnormality, Atraumatic appearance, and Sinuses non-tender Facial Nerve: Facial nerve symmetrical and intact Salivary Glands: Parotid Gland: Normal, Submandibular Gland: Normal, and Sublingual Gland: Normal Eyes: No gross abnormalities, EOMI, and No Nystagmus Ears: External Ear: Normal bilateral External Auditory Canal: Normal bilateral Tympanic Membranes: Abnormal bilateral Tubes present: Patentcrusting around base of tube on the right Middle Ear: Normal bilateral Hearing: Normal bilateral Nose: External Nose: Normal Septum: Deviated nasal septum left Mucosa/Turbinates: Inferior turbinate hypertrophy and Abnormal bilateral Mucosal edema moderate, Mucoid rhinorrhea moderate mucoid rhinorrhea bilaterally Oral Cavity: Normal lips, Normal teeth, Normal gums, Normal floor of mouth, Normal oral mucosa, and Normal anterior tongue Oropharynx: Normal mucosa, Normal soft palate, Normal hard palate, Normal uvula, Tonsils surgically absent, and Normal Vallecula TMJ: No pain, crepitus, or trismus right and left Neck: Neck supple, No adenopathy, Thyroid normal in size without nodules or tenderness, No palpable neck masses, and Carotids normal Respiratory: No stridor, Normal respiratory effort and No use of accessory muscles Cardiovascular: Regular rate and Regular rhythm Neurologic: Patient is alert and oriented x3 with normal affect and grossly normal cranial nerves ASSESSMENT/PLAN: James was seen today for follow-up. Diagnoses and all orders for this visit: Acute non-recurrent maxillary sinusitis - CT sinuses without contrast; Future - doxycycline (ADOXA) 100 MG tablet; Take 1 tablet (100 mg total) by mouth in the morning and 1 tablet (100 mg total) before bedtime. Do all this for 10 days. - methylPREDNISolone (MEDROL, SIA,) 4 mg tablet; Take as directed Dysfunction of both eustachian tubes - ipratropium (ATROVENT) 42 mcg (0.06 %) nasal spray; Administer 2 sprays into each nostril 3 (three) times a day as needed for rhinitis. - CT sinuses without contrast; Future - ciprofloxacin-dexAMETHasone (CIPRODEX) otic suspension; Administer 4 drops into ears in the morning and 4 drops before bedtime. Do all this for 5 days. Vasomotor rhinitis - ipratropium (ATROVENT) 42 mcg (0.06 %) nasal spray; Administer 2 sprays into each nostril 3 (three) times a day as needed for rhinitis. Chronic sinusitis of both maxillary sinuses - CT sinuses without contrast; Future Today's examination findings were discussed with the patient/patient's parent or guardian. Recommendations for treatment were provided including the following: - Wait 24-48 hours, then start antibiotics and steroids if symptoms persist - Start ipratroprium bromide for vasomotor rhinitis - Continue Flonase Sensimist - Ciprodex for crusting around right tube, but use it on both sides given current upper respiratory symptoms - Follow-up: 3-4 months The patient will contact [facility] if there are any additional questions or concerns: . Messages received through [facility] may take up to 3 business days for a response. [facility] should not be used for urgent or emergent messaging. The after-hours phone number is: . Electronically signed by Arelis Guillermo MD Please note that parts of this chart were generated using voice recognition [employer] dictation software. Although every effort was made to ensure the accuracy of this automated trauma counsellor, some errors in trauma counsellor may have occurred. Estela KODAK Fu 12/04/23 1230 documented in this encounter [facility] 12-04-2023 Instructions Arelis Guillermo MD - 12/04/2023 12:15 PM EDT Today's examination findings were discussed with the patient/patient's parent or guardian. Recommendations for treatment were provided including the following: - Wait 24-48 hours, then start antibiotics and steroids if symptoms persist - Start ipratroprium bromide for vasomotor rhinitis - Continue Flonase Sensimist - Add nasal saline spray anytime - Ciprodex for crusting around right tube, but use it on both sides given current upper respiratory symptoms - Follow-up: 3-4 months The patient will contact [facility] if there are any additional questions or concerns: . Messages received through [facility] may take up to 3 business days for a response. [facility] should not be used for urgent or emergent messaging. The after-hours phone number is: . documented in this encounter [facility] 10-15-2023 History of Present illness Narrative Reason for Appointment: Patient ID: James Bustos is a 23 y.o. female who presents for Weight Management Patient presents today for a weight management consultation. Patient has been prescribed Adipex and she is here for her 4th prescription. Today's Vitals: Estimated body mass index is 51.34 kg/m as calculated from the following: Height as of 09/16/22: 5' 7 . Weight as of this encounter: 327 lb 12.8 oz. Previous Weight/BMI: Wt Readings from Last 3 Encounters: 10/15/23 327 lb 12.8 oz 09/22/23 336 lb 09/16/22 (!) 328 lb BMI Readings from Last 3 Encounters: 10/15/23 51.34 kg/m 09/22/23 52.63 kg/m 09/16/22 51.37 kg/m Allergies as of 10/15/2023 - Reviewed 10/15/2023 Allergen Reaction Noted Amoxicillin Other 09/16/2022 Amoxicillin-pot clavulanate GI intolerance 01/22/2022 Past Medical History: Diagnosis Date Chronic myringitis of right ear Chronic rhinitis Decreased hearing of left ear Hearing difficulty of both ears Migraine without aura and without status migrainosus, not intractable (CMS/HCC) Past Surgical History: Procedure Laterality Date OTHER SURGICAL HISTORY 2009 tubes, tonsils, adenoids OTHER SURGICAL HISTORY 12/18/2017 BTTI Review of Systems: Review of Systems Constitutional: Negative. HENT: Negative. Eyes: Negative. Respiratory: Negative. Cardiovascular: Negative. Gastrointestinal: Negative. Genitourinary: Negative. Musculoskeletal: Negative. Skin: Negative. Neurological: Negative. All other systems reviewed and are negative. Hematological: Negative. Endocrine: Negative. Allergic/Immunologic: Negative. Objective Physical Exam Constitutional: Appearance: Normal appearance. She is normal weight. HENT: Head: Normocephalic. Cardiovascular: Rate and Rhythm: Normal rate. Pulses: Normal pulses. Pulmonary: Effort: Pulmonary effort is normal. Breath sounds: Normal breath sounds. Abdominal: Palpations: Abdomen is soft. Musculoskeletal: General: Normal range of motion. Neurological: General: No focal deficit present. Mental Status: She is alert and oriented to person, place, and time. Psychiatric: Mood and Affect: Mood normal. Behavior: Behavior normal. Thought Content: Thought content normal. Judgment: Judgment normal. Vitals and nursing note reviewed. Assessment/Plan Encounter Diagnosis Name Primary? Encounter for weight management Adipex: Patient presents today for 3rd Adipex prescription. Patient desires additional weigh loss and she is currently taking metformin along with working out to achieve further results. Weight and blood pressure has been captured and I have discussed/reiterated the importance of keeping a food journal, proper nutrition/diet, and exercise regimen. Patient verbalized understanding. Patient has lost more than 5% of her initial body weight Follow Up: Patient is to return to the office in 3 months for further evaluation to assess patient progress. Weight and blood pressure will need to be obtained . Documented by: Mishel Peralta LPN on behalf of YAMEL Henao documented in this encounter [facility] 08-21-2023 History of Present illness Narrative Images from the original note were not included. [facility] [address] [place] [facility] [id number] SUBJECTIVE: Patient ID ([id number]): James Bustos is a 23 y.o. female presents today for Chief Complaint Patient presents with tube check HPI: James is seen in follow up today for tube check. Patient was last seen on 03/04/2023. 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 Guillermo. She denies any infections since last visit. She does have complaints of intermittent right ear pressure with decrease in hearing. These symptoms have happened twice in the last 2 months. Her 1st episode lasted a week in 2nd episode lasted 2 days. She currently does not have symptoms of ear pressure or decrease in hearing. She denies otalgia or tinnitus. She denies any concerns with the left ear. She states her PCP has looked at her ears and noticed they tubes are in different positions in the TM. She still has complaints of nasal congestion. She has been using Flonase daily. She discontinued Astepro due to taste. She denies use of sinus rinses. She was sent over for an audiogram. She denies any other ENT concerns. She is here for evaluation. HISTORY: Past Medical History: Diagnosis Date Dysfunction of both eustachian tubes 11/06/2022 Eczema History of recurrent ear infection 01/24/2023 HL (hearing loss) 01/24/2023 Morbid obesity with body mass index (BMI) of 50.0 to 59.9 in adult ([facility]) 01/24/2023 Otorrhea of both ears 01/24/2023 Seasonal allergies 01/24/2023 Varicella Visual impairment Wears glasses Past Surgical History: Procedure Laterality Date ADENOIDECTOMY MYRINGOTOMY WITH TUBE Bilateral 02/05/2023 Performed by Arelis Guillermo MD at [facility] NASOPHARYNGOSCOPY DILATION EUSTACHIAN TUBE Bilateral 02/05/2023 Performed by Arelis Guillermo MD at [facility] SKIN BIOPSY 2009 face ? TONSILLECTOMY TONSILLECTOMY ADENOIDECTOMY MYRINGOTOMY W/ TUBES 2009 TYMPANOSTOMY TUBE PLACEMENT Bilateral 2018 WISDOM TOOTH EXTRACTION 2018 Family History Problem Relation Age of Onset Melanoma Mother High Cholesterol Mother Heart disease Father Supraventricular tachycardia Father Anesthesia problems Neg Hx Social History Socioeconomic History Marital status: Single Spouse name: Not on file Number of children: Not on file Years of education: Not on file Highest education level: Not on file Occupational History Not on file Tobacco Use Smoking status: Never Smokeless tobacco: Never Vaping Use Vaping status: Never Used Substance and Sexual Activity Alcohol use: Not Currently Drug use: Not Currently Sexual activity: Yes Partners: Male control/protection: Condom Other Topics Concern Not on file Social History Narrative Not on file Social Determinants of Health Financial Resource Strain: Not on file Food Insecurity: No Food Insecurity (01/24/2023) Hunger Screening Food Insecurity - Worry: Never True Food Insecurity - Inability: Never True Transportation Needs: Not on file Physical Activity: Not on file Stress: Not on file Social Connections: Not on file Interpersonal Safety: Not on file Housing Instability: Not on file Allergies Allergen Reactions Augmentin [Amoxicillin-Pot Clavulanate] GI Disturbance Current Outpatient Medications Medication Sig Dispense Refill fluticasone (VERAMYST) 27.5 mcg/actuation nasal spray Administer 2 sprays into each nostril once daily. azelastine (ASTELIN) 137 mcg (0.1 %) nasal spray Administer 1 spray into each nostril in the morning and 1 spray before bedtime. Use in each nostril as directed. (Patient not taking: Reported on 08/21/2023) 30 mL 12 fluticasone propionate (FLONASE) 50 mcg/actuation nasal spray Administer 1 spray into each nostril in the morning. (Patient not taking: Reported on 03/04/2023) ibuprofen (MOTRIN) 600 mg tablet Take 1 tablet (600 mg total) by mouth every 6 (six) hours as needed for pain. (Patient not taking: Reported on 03/04/2023) 30 tablet 0 methylPREDNISolone (MEDROL, SIA,) 4 mg tablet Take as directed (Patient not taking: Reported on 03/04/2023) 21 tablet 0 multivitamin with minerals (HAIR,SKIN AND NAILS ORAL) Take by mouth. (Patient not taking: Reported on 03/04/2023) No current facility-administered medications for this visit. REVIEW OF SYSTEMS: Review of Systems Constitutional: Negative for chills and fever. HENT: Positive for hearing loss (, pressure) and tinnitus. Negative for ear discharge and ear pain (fullness). Respiratory: Negative for cough and wheezing. Data Reviewed: AUDIOLOGIC EVALUATION Reason for visit: CC: Patient was sent over for an audio today. She has a history of bilateral U tubes placed 02/05/23. She reports two episodes of right ear pressure, muffled hearing and static tinnitus. The first episode lasted a week and the second episode lasted a few days. Today, her right ear is at her baseline. She denies issues with her left ear. RESULTS: Otoscopic Evaluation: Right Ear: PE tube visualized Left Ear: PE tube visualized Immittance Measures: Right Ear: Type B large ECV, consistent with patent PET Left Ear: Unable to maintain hermetic seal for measurement Pure Tone Audiometry: Right Ear: Mild at 250Hz rising to normal hearing Left Ear: Mild at 250Hz rising to normal hearing In comparison to previous audio completed on 03/04/23, improvement of hearing sensitivity was noted on the right. Reliability: good Speech Audiometry: SRT/STEAM SHOVELMAN in good agreement WRS: Right Ear: Excellent (100%) Left Ear: Excellent (100%) RECOMMENDATIONS: Follow up with Brent Moore CNP Retest should she note changes in her audiologic symptoms Torin Sanchez, [facility] Slip Cover [employer] PHYSICAL EXAMINATION: Temp 36.8 C (98.2 F) Ht 170.2 cm (5' 7 ) Wt (!) 155.1 kg (342 lb) BMI 53.56 kg/m Constitutional: Healthy, alert, cooperative, and in no distress and normal ablility to communicate . Voice normal quality. Head/Face: Normocephalic, without obvious abnormality, salivary glands normal, atraumatic, sinuses nontender, and facial nerve intact Eyes: No gross abnormalities., EOMI, no nystagmus, and no lid ptosis Ear: RIGHT: hearing normal, external ear normal, canal normal, and Ear tube in, open, and dry LEFT: hearing normal, external ear normal, canal normal, and Ear tube in, open, and dry Nose: External nose appears normal, septum midline, no nasal polyps or masses, turbinate hypertrophy, and mucosal edema Oral: normal teeth, normal lips, normal gums, normal hard palate, normal anterior tongue, and oral mucosa moist Oropharynx: normal-appearing mucosa, no pharyngitis, no exudate, and normal soft palate and uvula TMJ: no pain, crepitus, or trismus Neck:normal, supple, no adenopathy, thyroid normal in size, no nodules or tenderness, no neck masses palpable, and carotids normal Heart: Regular rate Respiration: No stridor, Normal respiratory effort. Neurologic: Grossly normal Alert Oriented X 3 Affect normal Cranial nerves 2 -12 grossly intact ASSESSMENT/PLAN: James was seen today for tube check. Diagnoses and all orders for this visit: Dysfunction of both eustachian tubes Nasal congestion Plan: Bilateral tubes are in, open and patent. The patient underwent an audiogram prior to the office visit. The results were reviewed and discussed with the patient. As she is not currently experiencing symptoms of right ear pressure with decrease in hearing, I recommend she contact the office when symptoms occur so she can be seen in office. I advised continuing Flonase Sensimist daily for nasal congestion. We also discussed starting sinus rinses daily. Use salt packet with either distilled water or water that has been boiled and then cooled. Don't use straight tap water. Add distilled water and salt packet. Shake well. Microwave 10-15 seconds. Gently squeeze bottle into one side of the nose while leaning over the sink and breathing in and out of the mouth. Sample bottle was provided. Follow up with Dr. Guillermo in 3 months. Call sooner as needed. Counseling: The following elements of medical decision making were considered during this visit: Reviewed and summarized previous records and History and physical and audiogram. The patient was counseled regarding prognosis, risks and benefits of treatment options, impressions, importance of compliance with treatment and risk factor reductions. The patient verbalized understanding and agreement to the plan. Please note that parts of this chart were generated using voice recognition M*Modal dictation software. Although every effort was made to ensure the accuracy of this automated trauma counsellor, some errors in trauma counsellor may have occurred. KATYA Bhatti 08/21/23 1611 documented in this encounter [facility] 08-21-2023 History of Present illness Narrative AUDIOLOGIC EVALUATION Reason for visit: CC: Patient was sent over for an audio today. She has a history of bilateral U tubes placed 02/05/23. She reports two episodes of right ear pressure, muffled hearing and static tinnitus. The first episode lasted a week and the second episode lasted a few days. Today, her right ear is at her baseline. She denies issues with her left ear. RESULTS: Otoscopic Evaluation: Right Ear: PE tube visualized Left Ear: PE tube visualized Immittance Measures: Right Ear: Type B large ECV, consistent with patent PET Left Ear: Unable to maintain hermetic seal for measurement Pure Tone Audiometry: Right Ear: Mild at 250Hz rising to normal hearing Left Ear: Mild at 250Hz rising to normal hearing In comparison to previous audio completed on 03/04/23, improvement of hearing sensitivity was noted on the right. Reliability: good Speech Audiometry: SRT/STEAM SHOVELMAN in good agreement WRS: Right Ear: Excellent (100%) Left Ear: Excellent (100%) RECOMMENDATIONS: Follow up with Brent Moore CNP Retest should she note changes in her audiologic symptoms Torin Sanchez, [facility] [employer] documented in this encounter [facility] 08-21-2023 Instructions KATYA Bhatti - 08/21/2023 3:45 PM EDT Images from the original note were not included. Bilateral tubes are in, open and patent. The patient underwent an audiogram prior to the office visit. The results were reviewed and discussed with the patient. As she is not currently experiencing symptoms of right ear pressure with decrease in hearing, I recommend she contact the office when symptoms occur so she can be seen in office. I advised continuing Flonase Sensimist daily for nasal congestion. We also discussed starting sinus rinses daily. Use salt packet with either distilled water or water that has been boiled and then cooled. Don't use straight tap water. Add distilled water and salt packet. Shake well. Microwave 10-15 seconds. Gently squeeze bottle into one side of the nose while leaning over the sink and breathing in and out of the mouth. Sample bottle was provided. Follow up with Dr. Guillermo in 3 months. Call sooner as needed. documented in this encounter [facility] 03-04-2023 History of Present illness Narrative Images from the original note were not included. [facility] - ENT [address] [place] [address], [address] [facility] [id number] SUBJECTIVE: Patient ID (2000): James Bustos is a 22 y.o. female presents today for Chief Complaint Patient presents with Post-op BMT with ET Dilation HPI: James is seen in follow up today for ETD. Patient was last seen on surgery day which was 02/05/2023. She had BMT and bilateral ET dilation by Dr. Guillermo. She states initially she did have significant epistaxis on the right. Also had right otorrhea initially. Was treated with steroids and antibiotics/drops. This has all resolved. She states her right ear does have some whistling occasionally which was not present prior to surgery. Denies otalgia, otorrhea. Denies further epistaxis. States she can not tolerate azelastine anymore due to feeling it go down her throat and causing her to vomit. Continues on the Flonase and feels this works okay for her. Denies other ENT concerns today. She is here for evaluation. HISTORY: Past Medical History: Diagnosis Date Dysfunction of both eustachian tubes 11/06/2022 Eczema History of recurrent ear infection 01/24/2023 HL (hearing loss) 01/24/2023 Morbid obesity with body mass index (BMI) of 50.0 to 59.9 in adult ([facility]) 01/24/2023 Otorrhea of both ears 01/24/2023 Seasonal allergies 01/24/2023 Varicella Wears glasses Past Surgical History: Procedure Laterality Date MYRINGOTOMY WITH TUBE Bilateral 02/05/2023 Performed by Arelis Guillermo MD at [facility] NASOPHARYNGOSCOPY DILATION EUSTACHIAN TUBE Bilateral 02/05/2023 Performed by Arelis Guillermo MD at [facility] SKIN BIOPSY 2009 face ? TONSILLECTOMY ADENOIDECTOMY MYRINGOTOMY W/ TUBES 2009 TYMPANOSTOMY TUBE PLACEMENT Bilateral 2018 WISDOM TOOTH EXTRACTION 2018 Family History Problem Relation Age of Onset Melanoma Mother High Cholesterol Mother Heart disease Father Supraventricular tachycardia Father Anesthesia problems Neg Hx Social History Socioeconomic History Marital status: Single Spouse name: Not on file Number of children: Not on file Years of education: Not on file Highest education level: Not on file Occupational History Not on file Tobacco Use Smoking status: Never Smokeless tobacco: Never Vaping Use Vaping Use: Never used Substance and Sexual Activity Alcohol use: Not Currently Drug use: Not Currently Sexual activity: Defer Other Topics Concern Not on file Social History Narrative Not on file Social Determinants of Health Financial Resource Strain: Not on file Food Insecurity: No Food Insecurity (01/24/2023) Hunger Screening Food Insecurity - Worry: Never True Food Insecurity - Inability: Never True Transportation Needs: Not on file Physical Activity: Not on file Stress: Not on file Social Connections: Not on file Interpersonal Safety: Not on file Housing Instability: Not on file Allergies Allergen Reactions Augmentin [Amoxicillin-Pot Clavulanate] GI Disturbance Current Outpatient Medications Medication Sig Dispense Refill azelastine (ASTELIN) 137 mcg (0.1 %) nasal spray Administer 1 spray into each nostril in the morning and 1 spray before bedtime. Use in each nostril as directed. 30 mL 12 fluticasone propionate (FLONASE) 50 mcg/actuation nasal spray Administer 1 spray into each nostril in the morning. (Patient not taking: Reported on 03/04/2023) ibuprofen (MOTRIN) 600 mg tablet Take 1 tablet (600 mg total) by mouth every 6 (six) hours as needed for pain. (Patient not taking: Reported on 03/04/2023) 30 tablet 0 methylPREDNISolone (MEDROL, SIA,) 4 mg tablet Take as directed (Patient not taking: Reported on 03/04/2023) 21 tablet 0 multivitamin with minerals (HAIR,SKIN AND NAILS ORAL) Take by mouth. (Patient not taking: Reported on 03/04/2023) No current facility-administered medications for this visit. REVIEW OF SYSTEMS: Review of Systems Constitutional: Negative for chills and fever. HENT: Negative for ear discharge, ear pain and tinnitus. Neurological: Negative for dizziness and headaches. Data Reviewed: PHYSICAL EXAMINATION: Temp 36.6 C (97.9 F) Ht 170.2 cm (5' 7 ) Wt 134.3 kg (296 lb) BMI 46.36 kg/m Constitutional: Healthy, alert, cooperative, and in no distress and normal ablility to communicate . Voice normal quality. Head/Face: Normocephalic, without obvious abnormality, atraumatic, and facial nerve intact Eyes: No gross abnormalities. and no lid ptosis Ear: RIGHT: hearing normal, external ear normal, canal normal, and Ear tube in, open, and dry LEFT: hearing normal, external ear normal, canal normal, and Ear tube in, open, and dry Nose: External nose appears normal, normal mucosa, normal turbinates, no nasal polyps or masses, and deviated nasal septum right , no signs of recent or active bleeding Neck:normal, supple, no adenopathy, thyroid normal in size, no nodules or tenderness, and no neck masses palpable Heart: Regular rate Respiration: No stridor, Normal respiratory effort. Neurologic: Grossly normal Alert Affect normal ASSESSMENT/PLAN: James was seen today for post-op bmt with et dilation. Diagnoses and all orders for this visit: Dysfunction of both eustachian tubes Plan: Tubes are patent and dry bilaterally. Audiogram reviewed. Reviewed water precautions, Dr. Guillermo recommends use of ear plugs in dirty water such as lakes, ponds, oceans, streams, and bath water. Chlorinated water typically is fine. Ear drops will be given to use post-op. When an ear infection is present the tubes will drain. Ear drops will commonly be used to treat infection as opposed to an oral antibiotic. On occasion an oral antibiotic would be needed with drops. Follow-up in 6 months for tube check. Call sooner as needed. Counseling: The following elements of medical decision making were considered during this visit: Reviewed and summarized previous records and History and physical and audiogram. The patient was counseled regarding prognosis, risks and benefits of treatment options, impressions, importance of compliance with treatment and risk factor reductions. The patient verbalized understanding and agreement to the plan. Please note that parts of this chart were generated using voice recognition Fieldglass dictation software. Although every effort was made to ensure the accuracy of this automated trauma counsellor, some errors in trauma counsellor may have occurred. aTvia Dick CMA 03/04/23 1543 Silverio Patiño PA-C 03/05/23 0902 documented in this encounter [facility] 03-04-2023 Instructions Silverio Patiño PA-C - 03/04/2023 3:45 PM EST Tubes are patent and dry bilaterally. Audiogram reviewed. Reviewed water precautions, Dr. Guillermo recommends use of ear plugs in dirty water such as lakes, ponds, oceans, streams, and bath water. Chlorinated water typically is fine. Ear drops will be given to use post-op. When an ear infection is present the tubes will drain. Ear drops will commonly be used to treat infection as opposed to an oral antibiotic. On occasion an oral antibiotic would be needed with drops. Follow-up in 6 months for tube check. Call sooner as needed. documented in this encounter [facility] 03-04-2023 History of Present illness Narrative AUDIOLOGIC EVALUATION Reason for visit: CC: James is here for post-op BMT (BMT completed 02/05/2023). She reports a right ear infection since the placement of the PET. Treatment to date includes antibiotics and steroids. She feels that she can hear equally out of both ears. Current otalgia, otorrhea, dizziness, aural pressure, and tinnitus were denied. Previous hearing evaluation completed on 01/22/2022 revealed mild CHL rising to normal limits, bilaterally. HISTORY: Concerns with hearing: No Tinnitus: No Dizziness: No Noise Exposure: No Aural Fullness: No Otalgia: No Otorrhea: No Other significant history: PET, AU RESULTS: Otoscopic Evaluation: Right Ear: PE tube visualized Left Ear: PE tube visualized Immittance Measures: Right Ear: Type B large ECV, consistent with patent PET Left Ear: Could not obtain seal suggestive of patent PET Pure Tone Audiometry: Right Ear: Mild CHL rising to normal limits Left Ear: Mild CHL rising to normal limits Reliability: good Speech Audiometry: SRT/STEAM SHOVELMAN in good agreement WRS: Right Ear: Excellent (100%) Left Ear: Excellent (100%) RECOMMENDATIONS: Follow up with Silverio Patiño PA-C Retest per management Susie Barrera Audiology Rn Referral Torin Ramirez,[facility] [employer] documented in this encounter [facility] 02-10-2023 History of Present illness Narrative Patient called on 02/10/2023 and stated that she had new onset right ear pain, buzzing in the right ear, decreased hearing, and drainage from the right ear. She underwent bilateral myringotomy tube insertion and Eustachian tube dilation on 02/05. Patient states that she had bleeding from the right nostril for the 1st 2 days but then subsequently stopped and has had no further bleeding. Her ear felt okay until this past 24 hours when she developed the ear pain and drainage. She has been using her nasal steroid spray and intranasal as a lasting as well as the Ciprodex eardrops. I discussed this case with Dr. Guillermo who felt that the bleeding is likely due to the inflamed and narrow nasal mucosa on the right and did not have any concerns about bleeding coming from the dilation. I discussed with the patient that the drainage and pain could be infectious in nature. I will send in an oral antibiotic and steroid. I would like her to call the office tomorrow to see if Dr. Guillermo would like to evaluate her or have her see 1 of our APPs Rosa Gonzalez D.O. documented in this encounter [facility] 02-10-2023 Miscellaneous Notes Pending this in patient chart. She had myringotomy surgery on 02/05/23. documented in this encounter [facility] 02-10-2023 Telephone encounter Note Pending this in patient chart. She had myringotomy surgery on 02/05/23. [facility] 02-05-2023 Miscellaneous Notes Pts mom states that the patient is still experiencing quite a bit of nasal bleeding since her MYRINGOTOMY WITH TUBE and NASOPHARYNGOSCOPY DILATION EUSTACHIAN TUBE this morning; they would like to know how long this should be happening? Please contact and advise. Dr Guillermo is this normal for this procedure? In her case it may be, because she had a septal spur I worked around. It will be normal to see some bleeding over the next couple of days. As long as she is not bleeding profusely (soaking through 2-3 gauze pads to the point of wringing them out in 15-20 minutes). If she is seeing that level of bleeding, she will need to go to the ER. I called and spoke to the patient, she is doing better. The bleeding slowed down and the pain is not bad. She will call with any other concerns and will head straight to the ED if the bleeding becomes profuse. documented in this encounter [facility] 02-05-2023 Telephone encounter Note Pts mom states that the patient is still experiencing quite a bit of nasal bleeding since her MYRINGOTOMY WITH TUBE and NASOPHARYNGOSCOPY DILATION EUSTACHIAN TUBE this morning; they would like to know how long this should be happening? Please contact and advise. [facility]-[address] Guillermo is this normal for this procedure? [facility] 02-05-2023 Telephone encounter Note In her case it may be, because she had a septal spur I worked around. It will be normal to see some bleeding over the next couple of days. As long as she is not bleeding profusely (soaking through 2-3 gauze pads to the point of wringing them out in 15-20 minutes). If she is seeing that level of bleeding, she will need to go to the ER. [facility] encounter Note I called and spoke to the patient, she is doing better. The bleeding slowed down and the pain is not bad. She will call with any other concerns and will head straight to the ED if the bleeding becomes profuse. [facility] [employer] [facility] Evaluation note [facility] [employer] Other Evaluation note Diagnosis Onset Date Class 3 severe obesity with body mass index (BMI) of 50.0 to 59.9 in adult acute [facility] Work Phone: Evaluation note* Diagnosis Onset Date Resolution Status Class 3 severe obesity with body mass index (BMI) of 50.0 to 59.9 in adult acute Class 3 severe obesity with body mass index (BMI) of 50.0 to 59.[address] adult [facility] Work Phone: Evaluation note* Diagnosis Encounter for weight management documented in this encounter [facility] HealthcareEvaluation [facility]* Diagnosis Encounter for weight management documented in this encounter [facility] HealthcareEvaluation note* Diagnosis Weight gain Other symptoms concerning nutrition, metabolism, and development Encounter for weight management documented in this encounter [facility] HealthcareEvaluation note* Diagnosis Other specified disorders of eustachian tube, bilateral- Primary [facility] Diagnosis Dysfunction of both eustachian tubes- Primary Vasomotor rhinitis Allergic rhinitis, cause unspecified Chronic sinusitis of both maxillary sinuses Tympanosclerosis of right ear [facility]* Diagnosis Otorrhea, right- Primary documented in this encounter [facility]* Diagnosis Allergic rhinitis Dysfunction of both eustachian tubes documented in this encounter [facility] System[facility] note* Diagnosis Dysfunction of both eustachian tubes- Primary [facility]* Diagnosis Other specified disorders of eustachian tube, bilateral- Primary documented in this encounter [facility] System[facility] note* Diagnosis Dysfunction of both eustachian tubes- Primary Nasal congestion Other diseases of nasal cavity and sinuses [facility]* Diagnosis Other specified disorders of eustachian tube, bilateral- Primary Ear fullness, right documented in this encounter [facility] System[facility] note* Diagnosis Acute non-recurrent maxillary sinusitis- Primary Dysfunction of both eustachian tubes Vasomotor rhinitis Allergic rhinitis, cause unspecified Chronic sinusitis of both maxillary sinuses documented in this encounter [facility] note* Diagnosis Dysfunction of both eustachian tubes Vasomotor rhinitis Allergic rhinitis, cause unspecified documented in this encounter [facility] note* Diagnosis Weight gain Other symptoms concerning nutrition, metabolism, and development Encounter for weight management Mood changes Unspecified episodic mood disorder documented in this encounter [facility] HealthcareEvaluation note* Diagnosis Encounter for weight management documented in this encounter [facility] HealthcareEvaluation note* Diagnosis ETD (Eustachian tube dysfunction), bilateral- Primary TMJ (temporomandibular joint disorder) Unspecified temporomandibular joint disorders Otalgia, right Ear fullness, right DNS (deviated nasal septum) Deviated nasal septum Tympanosclerosis of right ear History of recurrent ear infection [facility] Diagnosis Other specified disorders of eustachian tube, bilateral- Primary Conductive hearing loss, bilateral [facility] Diagnosis Other specified disorders of eustachian tube, bilateral- Primary [facility] Diagnosis ETD (Eustachian tube dysfunction), bilateral- Primary Tympanosclerosis of both ears [facility]* Diagnosis Well woman exam with routine gynecological exam Routine gynecological examination Encounter for weight management documented in this encounter [facility] - [facility] Other InstructionsNot on filedocumented in this encounter [facility] filedocumented in this encounter [facility] on filedocumented in this encounter [facility] on filedocumented in this encounter [facility] on filedocumented in this encounter [facility]Not on filedocumented in this encounter [facility] on filedocumented in this encounter [facility] Summary Purpose Family History Relationship Condition Age at Onset Recorded Date/T vaishnavi father Heart disease Unknown Not Specified Malignant neoplasm Unknown Relationship Condition Age at Onset Recorded Date/T vaishnavi father Heart disease Unknown mother Malignant neoplasm Unknown Advance Directives Advance Directive Response Recorded Date/ Time Advance Directives No December 16, 2017 5:17pm Chief Complaint and Reason for Visit Chief Complaint talk about adipex Reason for Visit Class 3 severe obesi ty with body mass index (BMI) of 50.0 to 59.9 in adult Chief Complaint talk about adipex adipex check in Reason for Visit Class 3 severe obesi ty with body mass index (BMI) of 50.0 to 59.9 in adult Chief Complaint talk about adipex adipex check in adipex Reason for Visit Class 3 severe obesi ty with body mass index (BMI) of 50.0 to 59.9 in adult Class 3 severe obesity with body mass index (BMI) of 50.0 to 59.9 in adult Additional Source Comments INFORMATION SOURCE (unrecogn ized section and content) DATE CREATED AUTHOR 06/02/2018 [facility] DATE CREATED AUTHOR AUTHOR'S ORGANIZ ATION 07/22/2018 [facility] DATE CREATED AUTHOR AUTHOR'S ORGANIZ ATION 06/02/2020 [facility] DATE CREATED AUTHOR AUTHOR'S ORGANIZ ATION 06/17/2024 [facility] DATE CREATED AUTHOR AUTHOR'S ORGANIZ ATION 06/22/2024 [facility] DATE CREATED AUTHOR AUTHOR'S ORGANIZ ATION 06/23/2024 [facility] DATE CREATED AUTHOR AUTHOR'S ORGANIZ ATION 08/15/2024 [facility] Care Teams (unrecognized sec tion and content) Team Status: Active Member Role Status Dates Jaciel Cannon MD Primary Care Provider Active Team Status: Inactive Member Role Status Dates Jaciel Cannon MD Primary Care Provide r, Attending Provider Active Start: July 10, 2023 End: July 10, 2023 Team Status: Inactive Member Role Status Dates Jaciel Cannon MD Primary Care Provide r, Attending Provider Active Start: August 11, 2023 End: August 11, 2023 Team Status: Inactive Member Role Status Dates Jaciel Cannon MD Primary Care Provide r, Attending Provider Active Start: September 11, 2023 End: September 11, 2023 Program Manager Slp Relationship Specialty Start Date End Date Jaciel Cannon MD [address] [place] [address] PCP - General Family Medicine 09/16/22 Program Manager Slp Relationship Specialty Start Date End Date Jaciel Cannon MD [address] [place] [address] PCP - General Family Medicine 09/16/22 Program Manager Slp Relationship Specialty Start Date End Date Jaciel Cannon MD [address] [place] [address] PCP - General Family Medicine 09/16/22 Program Manager Slp Relationship Specialty Start Date End Date Jaciel Cannon MD [address] [place] [phone] PCP - General Family Medicine 09/16/22 Program Manager Slp Relationship Specialty Start Date End Date Jaciel Cannon MD [address] [facility] [place] [address] PCP - General Family Medicine 09/16/22 Program Manager Slp Relationship Specialty Start Date End Date Jaciel Cannon MD [address] [facility] [place] [address] PCP - General Family Medicine 09/16/22 Program Manager Slp Relationship Specialty Start Date End Date Jaciel Cannon MD [address] [facility] [place] [address] PCP - General Family Medicine 01/24/23 Program Manager Slp Relationship Specialty Start Date End Date Jaciel Cannon MD [address] [facility] [place] [address] PCP - General Family Medicine 01/24/23 Program Manager Slp Relationship Specialty Start Date End Date Jaciel Cannon MD [address] [facility] [place] [address] PCP - General Family Medicine 01/24/23 Program Manager Slp Relationship Specialty Start Date End Date Jaciel Cannon MD [address] [facility] [place] [address] PCP - General Family Medicine 01/24/23 Program Manager Slp Relationship Specialty Start Date End Date Jaciel Cannon MD [address] [facility] [place] [address] PCP - General Family Medicine 01/24/23 Program Manager Slp Relationship Specialty Start Date End Date Jaciel Cannon MD [address] [facility] [place] [address] PCP - General Family Medicine 01/24/23 Program Manager Slp Relationship Specialty Start Date End Date Jaciel Cannon MD [address] [facility] [place] [address] PCP - General Family Medicine 01/24/23 Program Manager Slp Relationship Specialty Start Date End Date Jaciel Cannon MD [address] [facility] [place] [address] PCP - General Family Medicine 01/24/23 Program Manager Slp Relationship Specialty Start Date End Date Jaciel Cannon MD [address] [facility] [place] [address] PCP - General Family Medicine 01/24/23 Program Manager Slp Relationship Specialty Start Date End Date Jaciel Cannon MD [address] [facility] [place] [address] PCP - General Family Medicine 01/24/23 Program Manager Slp Relationship Specialty Start Date End Date Jaciel Cannon MD [address] [facility] [place] [address] PCP - General Family Medicine 09/16/22 Program Manager Slp Relationship Specialty Start Date End Date Jaciel Cannon MD [address] [facility] [place] [address] PCP - General Family Medicine 09/16/22 Program Manager Slp Relationship Specialty Start Date End Date Jaciel Cnanon MD PCP - General Family Medicine 09/16/22 Program Manager Slp Relationship Specialty Start Date End Date Jaciel Cannon MD PCP - General Family Medicine 09/16/22 Program Manager Slp Relationship Specialty Start Date End Date Jaciel Cannon MD [address] [facility] [place] [address] PCP - General Family Medicine 01/24/23 Program Manager Slp Relationship Specialty Start Date End Date Jaciel Cannon MD [address] [facility] [place] [address] PCP - General Family Medicine 01/24/23 Program Manager Slp Relationship Specialty Start Date End Date Jaciel Cannon MD [address] [facility] [place] [address] PCP - General Family Medicine 01/24/23 Program Manager Slp Relationship Specialty Start Date End Date Jaciel Cannon MD [address] [facility] [place] [address] PCP - General Family Medicine 09/16/22 Program Manager Slp Relationship Specialty Start Date End Date Jaciel Cannon MD [address] [facility] [place] [address] PCP - General Family Medicine 09/16/22 Goals (unrecognized section and content) Goals may be documented in a n alternate sectionGoals may be documented in an alternate sectionGoals may be documented in an alternate sectionNot on filedocumented as of this encounterNot on filedocumented as of this encounterNot on filedocumented as of this encounterNot on filedocumented as of this encounterNot on filedocumented as of this encounterNot on filedocumented as of this encounterNot on filedocumented as of this encounterNot on filedocumented as of this encounterNot on filedocumented as of this encounterNot on filedocumented as of this encounterNot on filedocumented as of this encounterNot on filedocumented as of this encounterNot on filedocumented as of this encounterNot on filedocumented as of this encounterNot on filedocumented as of this encounter Reason for Visit (unrecogniz ed section and content) Reason Comments Adipex #2 Weight Management Reason Comments Weight Management Reason Comments Weight Management Adipex #3 Reason Comments Follow-up Reason Onset Date Comments Med Refill 02/10/2023 Reason Comments Post-op BMT with ET Dilation Reason Comments tube check Reason Comments Follow-up Reason Comments Med Change Request Reason Comments Weight Management Pt present today for Adipex #8 visit. Reason Comments encounter for weight management Reason Comments Earache Ear pressure Reason Comments eustachiasn tube dysfunction Reason Comments Well Women Visit FOR RECORDS PERTAINING TO PATIENTS WHO ARE OR HAVE BEEN ENROLLED IN A CHEMICAL DEPENDENCY/SUBSTANCEABUSE PROGRAM, SOME INFORMATION MAY BE OMITTED. This clinical summary was aggregated from multiple sources. Caution should be exercised in using it in the provision of clinical care. This summary normalizes information from multiple sources, and as a consequence, information in this document may materially change the coding, format and clinical context of patient data. In addition, data may be omitted in some cases. CLINICAL DECISIONS SHOULD BE BASED ON THE PRIMARY CLINICAL RECORDS. [employer] provides no warranty or guarantee of the accuracy or completeness of information in this document.
[2024-09-27 17:12] LABS: Age Gdln ACOG Testing Note (.); IGP, rfx Aptima HPV ASCU Note (.)
== END 2024-09-23 12:31 | disposition home or self-care (01) ==
LOC: LAB 12:30
PROVIDERS: PCP Family Medicine; Visit Provider Nurse Practitioner Family
DX: Z01.419 Encounter for gynecological examination (general) (routine) without abnormal findings (principal)
CPT/HCPCS: 88175